=== PATIENT | male | born 1960 | race Caucasian/White ===

== ENCOUNTER 2016-12-26 14:34 | Inpatient (IN) | payer MEDICARE ==
[2016-12-26 15:14] VITALS: BMI 31.8
[2016-12-26] MEDS ORDERED: HYDROcodone/Acetaminophen 10/325 mg Tablet PO PRN (15:47)
[2016-12-26] MEDS: HYDROcodone/Acetaminophen 10/325 mg Tablet PO PRN ×2 (16:35→21:41)
[2016-12-26] MEDS ORDERED: Dextrose 50% Abboject 50 ML SYRINGE IVP PRN (20:05)
[2016-12-26] MEDS ORDERED: Dextrose 5% in Water 1,000 ML IV PRN (20:05)
[2016-12-26] MEDS: Pregabalin 100 MG CAP PO SCH (21:40)
[2016-12-26] MEDS: Lisinopril 5 MG TAB PO SCH (21:41)
[2016-12-26] MEDS: Zolpidem Tartrate 5 MG TAB PO PRN (21:41)
[2016-12-26] MEDS: Metoprolol Tartrate 25 MG TAB PO SCH (21:41)
[2016-12-26] MEDS: Atorvastatin Calcium 10 MG TAB PO SCH (21:41)
[2016-12-27 05:46] LABS: ALT (SGPT) 9 U/L (0-55); AST (SGOT) 17 U/L (5-34); Alkaline Phosphatase 106 U/L (40-150); Anion Gap 14 mmol/L (10-20); BUN (Urea Nitrogen) 25 mg/dL (8.4-25.7); Bilirubin, Total 0.6 mg/dL (0.2-1.2); Calc. Creatinine Clearance 100 mL/min (70-130); Carbon Dioxide 25 mmol/L (22-29); Chloride 103 mmol/L (98-107); Estimated GFR-MDRD 59; Globulin 2.9 g/dL (2.4-3.5); Protein, Total 5.8 g/dL (6.0-8.3)
[2016-12-27 06:18] LABS: Band 8 % (5-11); Hematocrit 35.4 % (42.0-52.0); Mean Platelet Volume 7.8 fL (7.4-10.4); Neutrophil 50 % (42-75); Red Blood Cell (RBC) Count 3.84 mill/uL (4.70-6.10); White Blood Cell (WBC) Count 9.9 thou/uL (4.8-10.8)
[2016-12-27] MEDS: HYDROcodone/Acetaminophen 10/325 mg Tablet PO PRN ×4 (06:25→21:17)
[2016-12-27] MEDS: Furosemide 20 MG TAB PO SCH (08:55)
[2016-12-27] MEDS: Pregabalin 100 MG CAP PO SCH ×3 (08:56→21:18)
[2016-12-27] MEDS: Metoprolol Tartrate 25 MG TAB PO SCH ×2 (08:58→21:18)
[2016-12-27] MEDS: Aspirin 325 MG TAB PO SCH (08:58)
[2016-12-27] MEDS: Levemir Flexpen 100 UNITS/ML PEN SC SCH (08:59)
[2016-12-27] MEDS: HumaLOG 300 UNITS/3 ML VIAL SC PRN (12:36)
--- NOTE | 2016-12-27 19:58 | HP ---
DATE OF ADMISSION: 12/26/2016 DATE OF EXAMINATION: 12/27/2016 CHIEF COMPLAINT: Status post left knee replacement for physical therapy. BRIEF HISTORY: This is a very pleasant 56-year-old male who was admitted to [facility] for left knee replacement. He underwent the procedure without any problems and he griffiths s been discharged here for therapy. He states that the pain is reasonably well controlled. He did not like the nerve block. He denies any fever or chills. He denies any numbness. PAST MEDICAL HISTORY: 1. Coronary artery disease. 2. Chronic obstructive pulmonary disease. He continues to smoke. 3. Diabetes mellitus type 2. 4. Hypertension. 5. Peripheral vascular disease. 6. Peripheral neuropathy most likely due to diabetes. 7. History of arrhythmia with bradycardia requiring pacemaker placement with episode of bacterial e ndocarditis, this requiring 6 weeks of antibiotics. PAST SURGICAL HISTORY: 1. Eleven back surgeries. 2. Six knee surgeries. 3. Bilateral wrist fusion. 4. Bilateral toe amputation. 5. Pacemaker placement and subsequent pacemaker removal. FAMILY HISTORY: Positive for lung cancer in his father. PSYCHOSOCIAL HISTORY: He is retired, persistent tobacco abuse. Denies any alcohol or IV drug abuse . CURRENT MEDICATIONS: He has been admitted here with the following medications: 1. Aspirin 325 mg b.i.d. 2. Lipitor 10 mg daily. 3. Lasix 20 mg daily. 4. [place] 5/325 q.6 h. p.r.n. 5. Levemir 25 units subcutaneous daily. 6. Lisinopril 5 mg at bedtime. 7. Lopressor 25 mg b.i.d. 8. Lyrica 100 mg t.i.d. 9. Metformin 1000 mg b.i.d. 10. Ambien 5 mg p.o. at bedtime p.r.n. ALLERGIES: ORANGES and DULOXETINE. REVIEW OF SYSTEMS: CARDIOVASCULAR: Denies any chest pain, shortness of breath, palpitations, PND, orthopnea, or pedal edema. RESPIRATORY: Denies any chronic cough, expectoration or pleuritic type chest pain. GASTROINTESTINAL: Denies any nausea, vomiting, diarrhea, constipation, hematemesis, melena, or heidi tochezia. GENITOURINARY: Denies any frequency, urgency, dysuria or hematuria. CENTRAL NERVOUS SYSTEM: Generalized weakness due to the knee surgery and peripheral neuropathy. HEENT: No difficulty with speech, vision, hearing or swallowing. PHYSICAL EXAMINATION: GENERAL: A pleasant 56-year-old male, sitting outside, smoking cigarettes. He is alert, awake, and oriented x3. HEENT: Normocephalic, atraumatic. Pupils equal and reactive to light and accommodation. VITAL SIGNS: He is afebrile. Heart rate is 71, respirations are 20, oxygen saturation is 95% on ro om air, and blood pressure 128/60. CARDIOVASCULAR: S1 and S2+. RESPIRATORY: Normal vesicular breath sounds. ABDOMEN: Soft, nontender, bowel sounds heard in all quadrants. EXTREMITIES: Evidence for degenerative joint disease in his right knee. Left knee shows an incisio n with dressing. Left knee does show some effusion. There is some slight erythema to the skin. Sl ight warm. It is nontender. No neurovascular compromise. LABORATORY VALUES: From this morning shows a white count of 9.9, H and H is 11.8 and 35.4. Debeaker ry shows a sodium of 138, potassium 4.4, BUN and creatinine 25 and 1.25. Blood sugars are 153, 131, 138, and 272. IMPRESSION: 1. Status post left total knee replacement. 2. Coronary artery disease. 3. Hypertension. 4. Dyslipidemia. 5. Peripheral vascular disease. 6. Persistent tobacco abuse. PLAN: 1. Continue current medications. 2. Pain control. 3. Incisional care. 4. Watch for signs and symptoms of infection. 5. We again reinforced the need to quit smoking. 6. DVT and stress ulcer prophylaxis. 7. Decubitus precautions. 8. Nutritional support and routine laboratory values.
[2016-12-27] MEDS: Lisinopril 5 MG TAB PO SCH (21:18)
[2016-12-27] MEDS: Atorvastatin Calcium 10 MG TAB PO SCH (21:19)
[2016-12-27] MEDS: Zolpidem Tartrate 5 MG TAB PO PRN (21:19)
[2016-12-28] MEDS: HYDROcodone/Acetaminophen 10/325 mg Tablet PO PRN ×3 (03:25→20:51)
[2016-12-28] MEDS: HumaLOG 300 UNITS/3 ML VIAL SC PRN ×2 (06:28→11:16)
[2016-12-28] MEDS: Levemir Flexpen 100 UNITS/ML PEN SC SCH (09:00)
[2016-12-28] MEDS: Pregabalin 100 MG CAP PO SCH ×3 (09:01→20:52)
[2016-12-28] MEDS: Aspirin 325 MG TAB PO SCH (09:02)
[2016-12-28] MEDS: Furosemide 20 MG TAB PO SCH (09:02)
[2016-12-28] MEDS: Metoprolol Tartrate 25 MG TAB PO SCH ×2 (09:02→20:52)
--- NOTE | 2016-12-28 14:14 | PRG ---
DATE OF SERVICE: 12/28/2016 SUBJECTIVE: Mr. Paige is sitting outside, he had to take his DMITRY hose off from his left leg. He s tated that was causing him more pain. He still has some swelling and some erythema. Denies any fev er or chills. Dressing is intact. OBJECTIVE: VITAL SIGNS: He is afebrile, heart rate is 70, respirations 20, oxygen saturation is 93%, blood pre ssure 143/76. CARDIOVASCULAR: S1 and S2 plus. RESPIRATORY: Normal vesicular breath sounds. ABDOMEN: Soft, nontender, bowel sounds heard in all quadrants. EXTREMITIES: Left knee incision with dressing. Some edema and erythema is present. I advised him to try to keep it elevated. He states that he is having pain, but it is controlled. IMPRESSION: 1. Left knee replacement. 2. Peripheral vascular disease. 3. Tobacco abuse. 4. Coronary artery disease. 5. Chronic obstructive pulmonary disease. 6. Diabetes mellitus type 2. 7. Hypertension. PLAN: 1. Continue 1800 calorie heart healthy diet. 2. Accu-Cheks with sliding scale coverage. 3. Pain control. 4. Physical therapy. 5. Watch for signs and symptoms of infection. 6. Again reinforced the need for him to quit smoking. 7. Dr. Nisha Brownlee back tonight.
[2016-12-28] MEDS: Zolpidem Tartrate 5 MG TAB PO PRN (20:52)
[2016-12-28] MEDS: Lisinopril 5 MG TAB PO SCH (20:52)
[2016-12-28] MEDS: Atorvastatin Calcium 10 MG TAB PO SCH (20:53)
[2016-12-29] MEDS: HYDROcodone/Acetaminophen 10/325 mg Tablet PO PRN ×5 (01:33→22:21)
[2016-12-29] MEDS: Metoprolol Tartrate 25 MG TAB PO SCH ×2 (09:08→20:36)
[2016-12-29] MEDS: Furosemide 20 MG TAB PO SCH (09:09)
[2016-12-29] MEDS: Aspirin 325 MG TAB PO SCH (09:09)
[2016-12-29] MEDS: Pregabalin 100 MG CAP PO SCH ×3 (09:09→20:33)
[2016-12-29] MEDS: Levemir Flexpen 100 UNITS/ML PEN SC SCH (09:13)
[2016-12-29] MEDS: HumaLOG 300 UNITS/3 ML VIAL SC PRN (12:12)
[2016-12-29] MEDS: Atorvastatin Calcium 10 MG TAB PO SCH (20:36)
[2016-12-29] MEDS: Lisinopril 5 MG TAB PO SCH (20:36)
[2016-12-29] MEDS: Zolpidem Tartrate 5 MG TAB PO PRN (20:36)
--- NOTE | 2016-12-29 22:39 | PRG ---
DATE OF ADMISSION: 12/26/2016 DATE OF SERVICE: 12/29/2016 SUBJECTIVE: Mr. Paige is a 56-year-old white male who had a total knee replacement on the left kne e. Postoperatively, he had some pain and lots of muscle spasm and he was transferred to [facility] for physical therapy and occupational therapy. The patient states he has complaint of increasing pain today. His left knee looks a little bit more red than it should be, although Dr. Fernandez describes the same thing yesterday. Mr. Paige said he d eferred it all. He has no complaints today. OBJECTIVE: VITAL SIGNS: Blood pressure is 128/60, pulse 72-82, respirations 20-22, O2 sat 96% to 98%, T-max 98 .2. GENERAL: This is a well-developed, well-nourished, slightly obese white male in no apparent distres s at this time. HEENT: Reveals normocephalic, nontraumatic cranium. Pupils are equally round and reactive. Extrao cular movements are intact. Nose and throat are slightly dry. NECK: Supple, without masses, nodes or bruits. LUNGS: Chest is clear to auscultation. No rales, rhonchi or wheezes are heard. CARDIOVASCULAR: Reveals a regular rate and rhythm without murmurs, gallops or rubs. ABDOMEN: Obese, soft, nontender, without organomegaly. Normal bowel sounds are noted. No rebound or guarding is noted. GENITOURINARY: Deferred. EXTREMITIES: Left knee reveals incision with dressing over it. The patient has some erythema mainl y on the medial side, some edema is noted. It is still elevated. He states he seems to be having m ore pain, but is not warm, it is just slightly red. NEUROLOGIC: Otherwise, he is oriented to person, place, and time. IMPRESSION: 1. Left knee total knee replacement. 2. Peripheral vascular disease. 3. Coronary artery disease. 4. Chronic obstructive pulmonary disease. 5. Diabetes, type 2. 6. Hypertension. 7. Tobacco abuse. PLAN: 1. Continue physical therapy and occupational therapy. 2. Continue to follow that wound closely to make sure it does not get infected. 3. Accu-Cheks a.c. and at bedtime. 4. Pain control. 5. Continue DVT and stress ulcer prophylaxis. 6. Continue decubitus precautions. 7. Continue vital signs closely for signs of infection. 8. Encourage the patient to absolutely completely stop smoking.
[2016-12-30] MEDS: HYDROcodone/Acetaminophen 10/325 mg Tablet PO PRN ×5 (02:39→20:13)
[2016-12-30 05:28] LABS: #Basophils 0.1 thou/uL (0.0-0.2); #Eosinphils 0.6 thou/uL (0.0-0.7); #Lymphocytes 2.7 thou/uL (1.20-3.40); #Neutrophils 6.2 thou/uL (1.40-6.50); %Basophils 1.2 % (0.0-1.0); %Eosinophils 5.7 % (0.0-10.0); %Lymphocytes 25.6 % (21.0-51.0); Hematocrit 34.7 % (42.0-52.0); Mean Platelet Volume 7.2 fL (7.4-10.4); White Blood Cell (WBC) Count 10.5 thou/uL (4.8-10.8)
[2016-12-30 05:42] LABS: ALT (SGPT) 18 U/L (0-55); AST (SGOT) 21 U/L (5-34); Alkaline Phosphatase 108 U/L (40-150); Anion Gap 14 mmol/L (10-20); BUN (Urea Nitrogen) 30 mg/dL (8.4-25.7); Bilirubin, Total 0.5 mg/dL (0.2-1.2); Calc. Creatinine Clearance 105 mL/min (70-130); Calcium 8.9 mg/dL (7.8-10.44); Carbon Dioxide 26 mmol/L (22-29); Chloride 103 mmol/L (98-107); Estimated GFR-MDRD 63
[2016-12-30] MEDS: Levemir Flexpen 100 UNITS/ML PEN SC SCH (08:31)
[2016-12-30] MEDS: Aspirin 325 MG TAB PO SCH (08:33)
[2016-12-30] MEDS: Metoprolol Tartrate 25 MG TAB PO SCH ×2 (08:33→20:15)
[2016-12-30] MEDS: Pregabalin 100 MG CAP PO SCH ×3 (08:33→20:14)
[2016-12-30] MEDS: Furosemide 20 MG TAB PO SCH (08:34)
--- NOTE | 2016-12-30 09:59 | PRG ---
DATE OF SERVICE: 12/30/2016 HISTORY OF PRESENT ILLNESS: Mr. Paige is a 56-year-old white male that had a total knee replacemen t done on the left knee. Postoperatively, had a quite a bit of pain and some swelling and muscle sp asms. He was transferred to [facility] for physical therapy and occupational therap y. The patient states he has some increased pain, but it seems to be better. His left knee is still so me swollen and slightly red. LABORATORY DATA: We did do lab work, which revealed white count of 10,500, hemoglobin 11.9, hematoc rit 34.7, platelet count 339,000. No significant shift is noted. Sodium 138, potassium 5.0, chlori de 103, carbon dioxide 26 with a BUN of 30, creatinine 1.19 and sugar this morning 124. Accu-Cheks yesterday revealed a fasting 144, before lunch 191, before supper 113, before bedtime 126, and fasti ng this morning 124. PHYSICAL EXAMINATION: GENERAL: He is a well-developed, well-nourished, slightly obese white male in no apparent distress at this time. HEENT: Reveals normocephalic, nontraumatic cranium. Pupils are equally round. Nose and throat are slightly dry. NECK: Supple, without masses, nodes or bruits. CHEST: Clear to auscultation. No rales, rhonchi, wheezes, or cough is heard. CARDIOVASCULAR: Heart reveals a regular rate and rhythm without murmurs, gallops or rubs. ABDOMEN: Obese, soft, nontender, without organomegaly. Normal bowel sounds are noted. No rebound or guarding is noted. GENITOURINARY: Deferred. EXTREMITIES: Left knee reveals still slightly red, may be a little bit less than it was yesterday, still somewhat swollen. It is not warm, it is not draining. NEUROLOGIC: He is oriented to person, place, and time. ASSESSMENT: 1. Total left knee replacement. 2. Peripheral vascular disease. 3. Coronary artery disease. 4. Chronic obstructive pulmonary disease, still smoking. 5. Diabetes type 2. 6. Hypertension. 7. Tobacco abuse. PLAN: 1. Continue physical therapy and occupational therapy. 2. Continue to follow the wound closely. Make sure, it does not get infected. 3. Accu-Cheks a.c. and at bedtime. 4. Pain control. 5. Deep venous thrombosis and stress ulcer prophylaxis. 6. Continue decubitus precautions. 7. Follow his vital signs closely for signs of infection and blood pressure. 8. Continue to encourage patient to absolutely stop smoking.
[2016-12-30] MEDS: HumaLOG 300 UNITS/3 ML VIAL SC PRN ×2 (11:12→20:15)
[2016-12-30] MEDS: Lisinopril 5 MG TAB PO SCH (20:14)
[2016-12-30] MEDS: Zolpidem Tartrate 5 MG TAB PO PRN (20:14)
[2016-12-30] MEDS: Atorvastatin Calcium 10 MG TAB PO SCH (20:15)
[2016-12-31] MEDS: HYDROcodone/Acetaminophen 10/325 mg Tablet PO PRN ×5 (02:46→20:32)
[2016-12-31] MEDS: HumaLOG 300 UNITS/3 ML VIAL SC PRN ×3 (05:11→16:50)
[2016-12-31] MEDS: Furosemide 20 MG TAB PO SCH (07:57)
[2016-12-31] MEDS: Aspirin 325 MG TAB PO SCH (07:57)
[2016-12-31] MEDS: Metoprolol Tartrate 25 MG TAB PO SCH ×2 (07:57→20:31)
[2016-12-31] MEDS: Pregabalin 100 MG CAP PO SCH ×3 (07:57→20:31)
[2016-12-31] MEDS: Levemir Flexpen 100 UNITS/ML PEN SC SCH (08:01)
--- NOTE | 2016-12-31 14:55 | PRG ---
DATE OF SERVICE: 12/31/2016 HISTORY OF PRESENT ILLNESS: Mr. Paige is a very pleasant 56-year-old white male had a total knee r eplacement done and postoperatively he had lots of pain, and lots of swelling. He lives alone and i s unable to care for himself, he was transferred to [facility] for physical therapy, occupati onal therapy to increase his strength and stamina. SUBJECTIVE: The patient has no complaints today except his leg is still swollen and has quite bit o f pain. OBJECTIVE: VITAL SIGNS: Today reveal blood pressure is elevated this morning at 170/72, pulse 69-75, respirati ons 18-20, O2 sat 95-98%. The patient is still smoking. T-max is 96.9. GENERAL: This is a well-developed, well-nourished, obese white male in no apparent distress at this time. HEENT: Reveals normocephalic, nontraumatic cranium. Pupils are equally round and reactive. Extrao cular movements intact. Nose and throat slightly dry. NECK: Supple, without masses, nodes or bruits. CHEST: Clear to auscultation. No rales, rhonchi or wheezes are heard. CARDIOVASCULAR: Reveals a regular rate and rhythm without murmurs, gallops or rubs. ABDOMEN: Obese, soft, nontender, without organomegaly, normal bowel sounds are noted. No rebound o r guarding is noted. : Deferred. EXTREMITIES: Reveal no clubbing, cyanosis or edema. The left knee reveals still slightly red, stil l swollen and puffy, but not warm, not draining. NEUROLOGIC: The patient has no focal deficits. Alert and oriented to person, place, and time. ASSESSMENT: 1. Total left knee replacement. 2. Peripheral vascular disease. 3. Coronary artery disease. 4. Chronic obstructive pulmonary disease, still smoking. 5. Diabetes type 2. 6. Hypertension. 7. Tobacco abuse. PLAN: 1. Continue physical therapy and occupational. 2. Continue to follow him closely and make sure he does not get infected. 3. Accu-Cheks a.c. and at bedtime. 4. Pain control. 5. DVT and stress ulcer prophylaxis. 6. Continue decubitus precautions. 7. Follow vital signs closely for signs of infection and hypertension. 8. Encouraged the patient to absolutely stop smoking.
[2016-12-31] MEDS: Lisinopril 5 MG TAB PO SCH (20:31)
[2016-12-31] MEDS: Atorvastatin Calcium 10 MG TAB PO SCH (20:31)
[2016-12-31] MEDS: Zolpidem Tartrate 5 MG TAB PO PRN (20:32)
[2017-01-01] MEDS: HYDROcodone/Acetaminophen 10/325 mg Tablet PO PRN ×5 (02:16→20:14)
[2017-01-01] MEDS: HumaLOG 300 UNITS/3 ML VIAL SC PRN ×3 (06:05→16:59)
[2017-01-01] MEDS: Furosemide 20 MG TAB PO SCH (08:52)
[2017-01-01] MEDS: Metoprolol Tartrate 25 MG TAB PO SCH ×2 (08:52→20:13)
[2017-01-01] MEDS: Aspirin 325 MG TAB PO SCH (08:52)
[2017-01-01] MEDS: Levemir Flexpen 100 UNITS/ML PEN SC SCH (08:53)
[2017-01-01] MEDS: Pregabalin 100 MG CAP PO SCH ×3 (08:53→20:13)
[2017-01-01 09:16] LABS: #Basophils 0.2 thou/uL (0.0-0.2); #Eosinphils 0.5 thou/uL (0.0-0.7); #Lymphocytes 2.8 thou/uL (1.20-3.40); #Monocytes 0.6 thou/uL (0.11-0.59); #Neutrophils 8.1 thou/uL (1.40-6.50); %Basophils 1.4 % (0.0-1.0); %Eosinophils 3.8 % (0.0-10.0); %Lymphocytes 22.8 % (21.0-51.0); %Monocytes 5.2 % (0.0-10.0); Hematocrit 37.2 % (42.0-52.0); Red Blood Cell (RBC) Count 3.98 mill/uL (4.70-6.10); White Blood Cell (WBC) Count 12.1 thou/uL (4.8-10.8)
[2017-01-01] MEDS: Atorvastatin Calcium 10 MG TAB PO SCH (20:13)
[2017-01-01] MEDS: Lisinopril 5 MG TAB PO SCH (20:13)
[2017-01-01] MEDS: Sulfameth/Trimethoprim DS 800-160mg TAB PO SCH (20:14)
[2017-01-01] MEDS: Zolpidem Tartrate 5 MG TAB PO PRN (21:00)
--- NOTE | 2017-01-01 22:54 | PRG ---
DATE OF ADMISSION: 12/26/2016 DATE OF PROGRESS NOTE: 01/01/2017 SUBJECTIVE: Mr. Paige is a very pleasant 56-year-old white male with a total knee replacement done . Postoperatively, he had lots of pain and swelling. He lives alone and therefore was transferred to [facility] for physical therapy/occupational therapy to increase his strength and stamina. His leg is a little bit more red and swollen today. We did repeat white count that was gone from 10 ,000 to 12,000, so there is nothing draining, but we will presumptively start him on some Bactrim-DS one pill twice a day to see if that helps with the swelling and inflammation before gets an abscess . He has no fluctuance to some swelling and some redness. Subjectively, he has no other complaints. OBJECTIVE: VITAL SIGNS: Blood pressure this morning 135/65, pulse 65-81, respirations 18, O2 sat 94-98% on steffany m air, T-max 97.4. GENERAL: This is a well-developed, slightly obese white male, in no apparent distress at this time. HEENT: Reveals normocephalic, nontraumatic cranium. Pupils are equally round and reactive. Extrao cular movements intact. Nose and throat are dry, but clear. NECK: Supple, without masses, nodes or bruits. CHEST: Clear to auscultation. No rales, rhonchi, wheezes or cough is heard. CARDIOVASCULAR: Regular rate and rhythm without murmurs, gallops or rubs. ABDOMEN: Obese, soft, nontender, without organomegaly. Normal bowel sounds are noted. No rebound or guarding is noted. : Deferred. EXTREMITIES: Reveal no clubbing, cyanosis or edema. Left knee is still slightly red, still puffy, a little warmer than it was yesterday. No drainage is noted. NEUROLOGIC: Patient has no focal deficits. He is oriented to person, place, and time. ASSESSMENT: 1. Recent total left knee replacement, somewhat red and inflamed. 2. Coronary artery disease. 3. Chronic obstructive pulmonary disease, still smoking. 4. Diabetes type 2. 5. Hypertension. 6. Tobacco abuse. PLAN: 1. Start Bactrim-DS one p.o. b.i.d. for 10 days. 2. Continue physical therapy and occupational therapy. 3. Continue to follow closely, actually it does not get infected. 4. Continue Accu-Cheks a.c. and at bedtime. 5. Pain control. 6. DVT and stress ulcer prophylaxis. 7. Continue decubitus precautions. 8. Follow vital signs closely for signs of infection. 9. Encouraged patient to stop smoking.
[2017-01-02] MEDS: HYDROcodone/Acetaminophen 10/325 mg Tablet PO PRN ×6 (00:39→22:20)
[2017-01-02] MEDS: HumaLOG 300 UNITS/3 ML VIAL SC PRN ×3 (05:25→22:17)
[2017-01-02] MEDS: Aspirin 325 MG TAB PO SCH (08:19)
[2017-01-02] MEDS: Metoprolol Tartrate 25 MG TAB PO SCH ×2 (08:19→22:20)
[2017-01-02] MEDS: Furosemide 20 MG TAB PO SCH (08:19)
[2017-01-02] MEDS: Levemir Flexpen 100 UNITS/ML PEN SC SCH (08:19)
[2017-01-02] MEDS: Sulfameth/Trimethoprim DS 800-160mg TAB PO SCH ×2 (08:20→22:19)
[2017-01-02] MEDS: Pregabalin 100 MG CAP PO SCH ×3 (08:20→22:19)
--- NOTE | 2017-01-02 19:41 | PRG ---
DATE OF SERVICE: 01/02/2017 SUBJECTIVE: Mr. Paige is a 56-year-old white male who had a total knee replaced on the left side. Postoperatively, he had lots of pain and lots of muscle spasm. He is transferred to [facility] for physical therapy and occupational therapy. The patient states that he feels a little better today; it is not as painful, states it is less swol imani and less red. OBJECTIVE: VITAL SIGNS: Today, reveal blood pressure 130/78, pulse 71-81, respirations 18, O2 sat 95% to 97% a nd T-max is 97.4. GENERAL: This is a well-developed, well-nourished, very pleasant white male, in no apparent distres s. HEENT: At this time, reveals normocephalic and nontraumatic cranium. Pupils are equally round and reactive to light and accommodation. Extraocular movements are intact. Nose and throat are slightl y dry. NECK: Supple, without masses, nodes or bruits. LUNGS: Chest clear to auscultation. No rales, no rhonchi, no wheezes. No cough is heard. The pat ient still smokes a couple of cigars each day. HEART: Reveals a regular rate and rhythm without murmurs, gallops or rubs. ABDOMEN: Obese, soft and nontender, without organomegaly. Normal bowel sounds are noted. No rebou nd or guarding is noted. GENITOURINARY: Deferred. EXTREMITIES: Reveal no clubbing, cyanosis or edema. Left knee is still slightly swollen and slight ly red, but much better than yesterday. We did start him on some Bactrim-DS twice a day for 14 days . NEUROLOGIC: The patient has no focal deficits. He is oriented to person, place, and time. LABORATORY DATA: Laboratories will be done tomorrow. IMPRESSION: 1. Recent total left knee replacement somewhat red and inflamed. 2. Coronary artery disease. 3. Chronic obstructive pulmonary disease, still smoking. 4. Diabetes type 2. 5. Hypertension. 6. Tobacco abuse. PLAN: 1. Bactrim DS 1 p.o. b.i.d. for 10 days. 2. Continue physical therapy and occupational therapy. 3. Continue to follow that left knee closely to make sure it does not get infected. 4. Continue Accu-Cheks a.c. and at bedtime. We will continue pain control and pain management. 5. Continue deep venous thrombosis and stress ulcer prophylaxis. 6. Continue decubitus precautions. 7. Follow vital signs closely. 8. Encouraged the patient stop smoking.
[2017-01-02] MEDS: Lisinopril 5 MG TAB PO SCH (22:19)
[2017-01-02] MEDS: Atorvastatin Calcium 10 MG TAB PO SCH (22:19)
[2017-01-02] MEDS: Zolpidem Tartrate 5 MG TAB PO PRN (22:20)
[2017-01-03] MEDS: HYDROcodone/Acetaminophen 10/325 mg Tablet PO PRN ×5 (03:43→21:36)
[2017-01-03 05:41] LABS: #Basophils 0.1 thou/uL (0.0-0.2); #Eosinphils 0.5 thou/uL (0.0-0.7); #Lymphocytes 2.4 thou/uL (1.20-3.40); #Monocytes 0.7 thou/uL (0.11-0.59); #Neutrophils 6.9 thou/uL (1.40-6.50); %Basophils 1.3 % (0.0-1.0); %Eosinophils 4.5 % (0.0-10.0); %Lymphocytes 22.8 % (21.0-51.0); %Monocytes 6.6 % (0.0-10.0); Hematocrit 34.7 % (42.0-52.0); Mean Platelet Volume 6.9 fL (7.4-10.4); Red Blood Cell (RBC) Count 3.74 mill/uL (4.70-6.10); White Blood Cell (WBC) Count 10.7 thou/uL (4.8-10.8)
[2017-01-03 05:53] LABS: Anion Gap 15 mmol/L (10-20); BUN (Urea Nitrogen) 32 mg/dL (8.4-25.7); Calc. Creatinine Clearance 82 mL/min (70-130); Calcium 9.2 mg/dL (7.8-10.44); Carbon Dioxide 26 mmol/L (22-29); Chloride 100 mmol/L (98-107); Estimated GFR-MDRD 48
[2017-01-03] MEDS: HumaLOG 300 UNITS/3 ML VIAL SC PRN ×3 (06:04→21:40)
[2017-01-03] MEDS: Pregabalin 100 MG CAP PO SCH ×3 (08:41→21:35)
[2017-01-03] MEDS: Aspirin 325 MG TAB PO SCH (08:44)
[2017-01-03] MEDS: Furosemide 20 MG TAB PO SCH (08:44)
[2017-01-03] MEDS: Sulfameth/Trimethoprim DS 800-160mg TAB PO SCH ×2 (08:44→21:35)
[2017-01-03] MEDS: Levemir Flexpen 100 UNITS/ML PEN SC SCH (08:44)
[2017-01-03] MEDS: Metoprolol Tartrate 25 MG TAB PO SCH ×2 (09:05→21:35)
--- NOTE | 2017-01-03 11:07 | PRG ---
DATE OF SERVICE: 01/03/2017 HISTORY OF PRESENT ILLNESS: Mr. Paige is a 56-year-old white male with total knee replaced on the left side. Postoperatively, he had lots of pain and lots of muscle spasms, transferred to [facility] for physical therapy and occupational therapy. States he feels very well today. He slept very well last night and is eating well. PHYSICAL EXAMINATION: VITAL SIGNS: Reveals blood pressure elevated at 174/74, pulse 71-80, respirations 18, O2 sat 95-97% . T-max is 97.5. GENERAL: This is a well-developed, well-nourished, slightly obese white male in no apparent distres s at this time. HEENT: Reveals normocephalic, nontraumatic cranium. Pupils are equally round and reactive. Extrao cular movements intact. Nose and throat slightly dry. NECK: Supple, without masses, nodes or bruits. LUNGS: Chest is clear to auscultation. CARDIOVASCULAR: Reveals a regular rate and rhythm without murmurs, gallops or rubs. ABDOMEN: Obese, soft, nontender, without organomegaly. Normal bowel sounds are noted. No rebound or guarding is noted. : Deferred. EXTREMITIES: Reveal no clubbing, cyanosis or edema, left knee is still slightly swollen and less re d and doing better. LABORATORY DATA: White count was normal. Laboratories done revealed a white count 10,700 with hemo globin 11.4, hematocrit 34.5. CRP elevated at 6.25. His sed rate is 89. IMPRESSION: 1. Recent total left knee replacement somewhat red and inflamed, on antibiotics. 2. Coronary artery disease. 3. Chronic obstructive pulmonary disease, still smoking. 4. Diabetic type 2. 5. Hypertension. 6. Tobacco abuse. PLAN: 1. Continue Bactrim-DS 1 p.o. b.i.d. for 10 days. 2. Continue physical therapy and occupational therapy. 3. Continue to follow left knee closely to make sure it does not get infected. 4. Continue Accu-Cheks a.c. and at bedtime. We will continue to follow. 5. Continued pain control and pain management. 6. Continue DVT and stress ulcer prophylaxis. 7. Continue to decubitus precaution. 8. Continue to follow her vital signs closely. 9. Encouraged of hygiene and to stop smoking.
[2017-01-03] MEDS: Atorvastatin Calcium 10 MG TAB PO SCH (21:35)
[2017-01-03] MEDS: Zolpidem Tartrate 5 MG TAB PO PRN (21:36)
[2017-01-03] MEDS: Lisinopril 5 MG TAB PO SCH (21:37)
[2017-01-04] MEDS: HYDROcodone/Acetaminophen 10/325 mg Tablet PO PRN ×3 (01:51→10:57)
[2017-01-04] MEDS: HumaLOG 300 UNITS/3 ML VIAL SC PRN ×2 (05:26→12:25)
[2017-01-04] MEDS ORDERED: Milk Of Magnesia 30 ML UDCUP PO PRN (06:21)
--- NOTE | 2017-01-04 07:56 | PRG ---
DATE OF SERVICE: 01/04/2017. HISTORY OF PRESENT ILLNESS: Mr. Paige is a very pleasant 56-year-old white male with a total knee replacement, left side. Postoperatively, he has lots of pain, lots of muscle spasms, transferred to [facility] for physical therapy and occupational therapy. He has been in a signifi cant risk always for cellulitis, every time he gets some type of operation he gets an osteomyelitis or cellulitis. He is watching very closely. He has no complaints today except feels constipated ye sterday, so we have started MiraLax daily. OBJECTIVE: VITAL SIGNS: Blood pressure this morning 143/69, pulse 69-80, respirations 18-20, O2 sa turations 97-98%, the patient still smokes. Temperature max is 96.6. LABORATORY DATA: Labs were all done yesterday which have no other significance concerns. Sugars griffiths ve been ranging from 116-204 mainly in the 150s to 160s. C-reactive protein yesterday was 6.28. Se d rate was 89. PHYSICAL EXAMINATION: GENERAL: This is a well-developed, well-nourished, very pleasant, slightly obese white male, in no apparent distress at this time. HEENT: Reveals normocephalic, nontraumatic cranium. Pupils are equally round and reactive. Extrao cular movements intact. Nose and throat slightly dry. NECK: Supple, without masses, nodes or bruits. CHEST: Clear to auscultation. No rales, rhonchi or wheezes are heard. CARDIOVASCULAR: Reveals a regular rate and rhythm without murmurs, gallops or rubs. ABDOMEN: Obese, soft, nontender, without organomegaly. Normal bowel sounds are noted. No rebound or guarding is noted. GENITOURINARY: Deferred. EXTREMITIES: Reveal no clubbing, cyanosis or edema. Left knee is still slightly swollen, but less so today and seems to be less red. IMPRESSION: 1. Total left knee replacement, somewhat red and inflamed, presently on Bactrim. 2. Coronary artery disease. 3. Chronic obstructive pulmonary disease, still smoking. 4. Diabetes type 2. 5. Hypertension. 6. Tobacco abuse. PLAN: 1. Continue Bactrim DS one p.o. b.i.d. for 10 days. 2. Continue physical therapy and occupational therapy. 3. Continue to follow up left knee closely to make sure that does not get infected. 4. Continue the Accu-Cheks a.c. and at bedtime. 5. Continue to pain control. 6. Continue to control of constipation with MiraLax daily. 7. Continue deep venous thrombosis and stress ulcer prophylaxes. 8. Continue decubitus precautions. 9. Encourage the patient to stop smoking.
[2017-01-04] MEDS: Aspirin 325 MG TAB PO SCH (09:00)
[2017-01-04] MEDS: Furosemide 20 MG TAB PO SCH (09:00)
[2017-01-04] MEDS: Levemir Flexpen 100 UNITS/ML PEN SC SCH (09:00)
[2017-01-04] MEDS: Polyethylene Glycol 3350 17 GM Packet PO SCH (09:01)
[2017-01-04] MEDS: Pregabalin 100 MG CAP PO SCH (09:01)
[2017-01-04] MEDS: Metoprolol Tartrate 25 MG TAB PO SCH (09:01)
[2017-01-04] MEDS: Sulfameth/Trimethoprim DS 800-160mg TAB PO SCH (09:02)
[2017-01-05 01:32] LABS: Anion Gap 20 mmol/L (10-20); BUN (Urea Nitrogen) 43 mg/dL (8.4-25.7); Calc. Creatinine Clearance 66 mL/min (70-130); Calcium 9.8 mg/dL (7.8-10.44); Carbon Dioxide 24 mmol/L (22-29); Chloride 101 mmol/L (98-107); Estimated GFR-MDRD 37
[2017-01-05 02:01] LABS: Hematocrit 36.7 % (42.0-52.0); Red Blood Cell (RBC) Count 3.95 mill/uL (4.70-6.10); White Blood Cell (WBC) Count 13.7 thou/uL (4.8-10.8)
[2017-01-05 02:02] LABS: #Eosinphils 0.4 thou/uL (0.0-0.7); #Monocytes 1.2 thou/uL (0.11-0.59); %Basophils 0.9 % (0.0-1.0); %Eosinophils 2.6 % (0.0-10.0); %Lymphocytes 22.1 % (21.0-51.0); Mean Platelet Volume 7.1 fL (7.4-10.4)
[2017-01-05 02:03] LABS: #Basophils 0.1 thou/uL (0.0-0.2)
[2017-01-05] MEDS: HYDROcodone/Acetaminophen 10/325 mg Tablet PO PRN ×5 (04:04→21:32)
[2017-01-05] MEDS: Polyethylene Glycol 3350 17 GM Packet PO SCH (08:55)
[2017-01-05] MEDS: Metoprolol Tartrate 25 MG TAB PO SCH ×2 (08:56→20:46)
[2017-01-05] MEDS: Aspirin 325 MG TAB PO SCH (08:56)
[2017-01-05] MEDS: Pregabalin 100 MG CAP PO SCH ×4 (08:58→20:46)
[2017-01-05] MEDS: Furosemide 20 MG TAB PO SCH (08:58)
[2017-01-05] MEDS: Sulfameth/Trimethoprim DS 800-160mg TAB PO SCH ×2 (08:58→20:47)
[2017-01-05] MEDS: Levemir Flexpen 100 UNITS/ML PEN SC SCH (09:03)
--- NOTE | 2017-01-05 10:37 | PRG ---
DATE OF SERVICE: 01/05/2017 HISTORY OF PRESENT ILLNESS: The patient is a 56-year-old white male that had a total knee replaceme nt on the left side. Postoperatively, he had lots of pain, lots of muscle spasms. He was transfer red to [facility] for physical therapy and occupational therapy. He has always had significant risk for cellulitis and his incision turned a little red, no drainage, but we placed him on Bactrim-DS. VITAL SIGNS: Vital signs this morning reveals blood pressure is 143/72, pulse 64-72, respirations 1 8-20, O2 sat 96-97% on room air, temperature max is 97.8. PHYSICAL EXAMINATION: GENERAL: This is a well-developed, well-nourished, very pleasant white male in no apparent distress at this time. HEENT: Reveals normocephalic, nontraumatic cranium. Pupils equal, round, and reactive. Extraocula r movements intact. Nose and throat slightly dry. NECK: Supple. CHEST: Clear to auscultation. No rales, rhonchi or wheezes, or cough is heard. CARDIOVASCULAR: Reveals a regular rate and rhythm without murmurs, gallops or rubs. ABDOMEN: Obese, soft, nontender, without organomegaly. Normal bowel sounds are noted. No rebound or guarding is noted. : Deferred. EXTREMITIES: Reveal no clubbing, cyanosis or edema. Left knee is less swollen, a little less red t bill. The patient felt lousy yesterday. He did have a blood count which revealed his white count was 13,0 00, but no source for infection. IMPRESSION: 1. Total left knee replacement, somewhat red and inflamed presently on Bactrim-DS twice daily. 2. Coronary artery disease. 3. Chronic obstructive pulmonary disease, smoking a pack a day. 4. Diabetes type 2. 5. Hypertension. 6. Tobacco abuse. PLAN: 1. Continue Bactrim-DS 1 p.o. b.i.d. for 10-14 days. Continue physical therapy and occupational th erapy. 2. Close follow up on that left knee to make sure it does not get infected. 3. Accu-Cheks a.c. and at bedtime. 4. Continue pain control. 5. Continue constipation prophylaxis with MiraLax. 6. Continue DVT and stress ulcer prophylaxis. 7. Continue decubitus precautions. 8. Encourage the patient to stop smoking.
[2017-01-05] MEDS: HumaLOG 300 UNITS/3 ML VIAL SC PRN (12:05)
[2017-01-05] MEDS: Lisinopril 5 MG TAB PO SCH (20:46)
[2017-01-05] MEDS: Atorvastatin Calcium 10 MG TAB PO SCH (20:46)
[2017-01-05] MEDS: Zolpidem Tartrate 5 MG TAB PO PRN (21:32)
[2017-01-06] MEDS: HYDROcodone/Acetaminophen 10/325 mg Tablet PO PRN ×5 (03:07→21:31)
[2017-01-06] MEDS: Levemir Flexpen 100 UNITS/ML PEN SC SCH (07:51)
[2017-01-06] MEDS: Metoprolol Tartrate 25 MG TAB PO SCH ×3 (07:52→21:31)
[2017-01-06] MEDS: Polyethylene Glycol 3350 17 GM Packet PO SCH (07:52)
[2017-01-06] MEDS: Aspirin 325 MG TAB PO SCH (07:53)
[2017-01-06] MEDS: Sulfameth/Trimethoprim DS 800-160mg TAB PO SCH ×2 (07:53→21:30)
[2017-01-06] MEDS: Furosemide 20 MG TAB PO SCH (07:53)
[2017-01-06] MEDS: Pregabalin 100 MG CAP PO SCH ×3 (07:54→21:30)
--- NOTE | 2017-01-06 09:56 | PRG ---
DATE OF SERVICE: 01/06/2017 HISTORY OF PRESENT ILLNESS: Mr. Paige is a 56-year-old white male with a total left knee replaceme nt. He was transferred here for physical therapy and occupational therapy. He has had some redness in his left leg. He has had multiple problems in the past with an infection, so we started him pro phylactically on some Bactrim-DS. He has no complaints except this morning he said he twisted his leg and it hurt quite a bit this mor jez. VITAL SIGNS: Blood pressure 121/58, pulse 66-72, respirations 16-18, O2 sat 97-98%, T-max 97.9. PHYSICAL EXAMINATION: GENERAL: This is a well-developed, well-nourished, very pleasant white male in no apparent distress at this time. HEENT: Reveals normocephalic, nontraumatic cranium. Pupils equal, round, and reactive. Extraocula r movements intact. Nose and throat are slightly dry. NECK: Supple, without masses, nodes or bruits. CHEST: Clear to auscultation. No rales, rhonchi or wheezes are heard. CARDIOVASCULAR: Reveals a regular rate and rhythm without murmurs, gallops or rubs. ABDOMEN: Obese, soft, nontender, without organomegaly. Normal bowel sounds are noted. No rebound or guarding is noted. : Deferred. EXTREMITIES: Reveal no clubbing, cyanosis or edema. Left knee is less swollen and less red, more t ana since he twisted it a little bit today. The patient states he feels well. He is not constipated. He is eating well. IMPRESSION: 1. Total left knee replacement, less swelling, presently on Bactrim-DS. 2. Coronary artery disease. 3. Chronic obstructive pulmonary disease, still smoking a pack a day. 4. Diabetes type 2. 5. Hypertension. 6. Tobacco abuse. PLAN: 1. Continue Bactrim-DS for 10-14 days. 2. Continue physical therapy and occupational therapy. 3. Continued DVT and stress ulcer prophylaxis. 4. Continue Accu-Cheks a.c. and at bedtime. 5. Continue pain control. 6. Continue constipation prophylaxis with MiraLax. 7. Continued decubitus precautions. 8. Encourage the patient to stop smoking. 9. Follow that leg closely to make sure it does not get infected.
[2017-01-06] MEDS ORDERED: Bisacodyl 10 MG SUPP PR PRN (15:03)
[2017-01-06] MEDS: Lisinopril 5 MG TAB PO SCH (21:29)
[2017-01-06] MEDS: Atorvastatin Calcium 10 MG TAB PO SCH (21:29)
[2017-01-06] MEDS: Zolpidem Tartrate 5 MG TAB PO PRN (21:31)
[2017-01-07] MEDS: HYDROcodone/Acetaminophen 10/325 mg Tablet PO PRN ×5 (03:04→21:28)
[2017-01-07] MEDS: HumaLOG 300 UNITS/3 ML VIAL SC PRN ×2 (05:28→11:34)
[2017-01-07] MEDS: Pregabalin 100 MG CAP PO SCH ×4 (08:22→21:59)
[2017-01-07] MEDS: Furosemide 20 MG TAB PO SCH (08:23)
[2017-01-07] MEDS: Sulfameth/Trimethoprim DS 800-160mg TAB PO SCH ×3 (08:23→22:00)
[2017-01-07] MEDS: Levemir Flexpen 100 UNITS/ML PEN SC SCH (08:23)
[2017-01-07] MEDS: Polyethylene Glycol 3350 17 GM Packet PO SCH (08:24)
[2017-01-07] MEDS: Metoprolol Tartrate 25 MG TAB PO SCH ×2 (08:24→21:27)
[2017-01-07] MEDS: Aspirin 325 MG TAB PO SCH (08:26)
--- NOTE | 2017-01-07 13:38 | RAD ---
TWO VIEWS OF THE LEFT KNEE: Date: 01-07-17 Comparison: 12-23-16 History: Knee replacement, pain. FINDINGS: Post-operative clips are noted within the soft tissues medial to the left knee. There is a total kn ee arthroplasty on the left, demonstrating no evidence for hardware failure. Small volume knee join t effusion suspected, difficult to assess secondary to post-operative state. The patella demonstrat es posterior post-operative change. No displaced fracture or evidence of dislocation seen. IMPRESSION: Post-operative changes. No acute fracture or evidence of dislocation seen. POS: [facility]
--- NOTE | 2017-01-07 20:38 | PRG ---
DATE OF SERVICE: 01/07/2017 SUBJECTIVE: Mr. Paige is a very pleasant 56-year-old white male with a total left knee replacement . Transferred here for physical therapy and occupational therapy. He has some redness in his left leg, he has had multiple problems in the past for infectious, we will start him prophylactically on some Bactrim-DS is actually seemed to be doing well. The patient was up and moving around last nigh t when he again twisted his leg. He states it hurt really bad, he is unable to do anything with it today. He requests an x-ray and certainly on inspection, he has no swelling, no redness, but it is exquisitely tender, we will get an x-ray this morning. OBJECTIVE: VITAL SIGNS: Today blood pressure is 118/57, pulse 60-66, respirations 18-20, and O2 saturation 94% to 98% on room air. Sugars are basically 151 or less. PHYSICAL EXAMINATION: GENERAL: This is a well-developed, well-nourished, somewhat obese white male, in no apparent distre ss at this time. HEENT: Reveals normocephalic, nontraumatic cranium. Pupils are equally round and reactive. Extrao cular movements intact. Nose and throat slightly dry. NECK: Supple, without masses, nodes or bruits. CHEST: Clear to auscultation. No rales, rhonchi or wheezes are heard. CARDIOVASCULAR: Reveals a regular rate and rhythm without murmurs, gallops or rubs. ABDOMEN: Obese, soft, nontender, without organomegaly. Normal bowel sounds are noted. No rebound or guarding is noted. : Deferred. EXTREMITIES: Reveal no clubbing, cyanosis or edema. Left knee is still less swollen, but more tend er today. We will get an x-ray this morning. IMPRESSION: 1. Total left knee replacement with less swelling, presently on Bactrim-DS. 2. Coronary artery disease. 3. Chronic obstructive pulmonary disease, still smoking a pack a day. 4. Diabetes type 2. 5. Hypertension. 6. Tobacco abuse. PLAN: 1. Continue Bactrim-DS 14 days. 2. Continue physical therapy and occupational therapy. 3. Continue DVT and stress ulcer prophylaxis. 4. Continue Accu-Cheks a.c. and at bedtime. 5. Continue pain control. 6. Continue prophylaxis with MiraLax for constipation. 7. Continue decubitus precautions. 8. Encourage the patient to stop smoking.
[2017-01-07] MEDS: Atorvastatin Calcium 10 MG TAB PO SCH ×2 (21:27→21:58)
[2017-01-07] MEDS: Zolpidem Tartrate 5 MG TAB PO PRN (21:27)
[2017-01-07] MEDS: Lisinopril 5 MG TAB PO SCH ×2 (21:27→21:59)
[2017-01-08] MEDS: HYDROcodone/Acetaminophen 10/325 mg Tablet PO PRN ×4 (02:25→20:52)
[2017-01-08] MEDS: Pregabalin 100 MG CAP PO SCH ×3 (08:24→20:50)
[2017-01-08] MEDS: Aspirin 325 MG TAB PO SCH (08:24)
[2017-01-08] MEDS: Levemir Flexpen 100 UNITS/ML PEN SC SCH (08:27)
[2017-01-08] MEDS: Metoprolol Tartrate 25 MG TAB PO SCH ×2 (08:27→20:51)
[2017-01-08] MEDS: Polyethylene Glycol 3350 17 GM Packet PO SCH (08:27)
[2017-01-08] MEDS: Furosemide 20 MG TAB PO SCH (08:30)
[2017-01-08] MEDS: Sulfameth/Trimethoprim DS 800-160mg TAB PO SCH ×2 (08:30→20:50)
--- NOTE | 2017-01-08 15:42 | PRG ---
DATE OF SERVICE: 01/08/2017 SUBJECTIVE: Mr. Paige is a 56-year-old white male with a total left knee done in [facility]. He said he did very well, but had quite a bit of pain afterwards and swelli ng. He was transferred to [facility] for physical therapy and occupational therapy. While in the hospital, he became a little bit red and he also had a boil on his left elbow that we s tarted him on Bactrim DS, so he would not get an infection in his prosthesis. OBJECTIVE: VITAL SIGNS: Today, revealed a blood pressure this morning, it was 138/62, pulse 70-74, respiration s 18-20, O2 sat 98% on room air and temperature 98.1. GENERAL: This is a well-developed, well-nourished, somewhat obese white male in no apparent distres s at this time. HEENT: Reveals normocephalic and nontraumatic cranium. Pupils are equal, round and reactive. Extr aocular movements are intact. Nose and throat are slightly dry. NECK: Supple, without mass, nodes or bruits. LUNGS: Chest is clear to auscultation. No rales, no rhonchi, no wheezes. No cough is heard. CARDIOVASCULAR: Reveals a regular rate and rhythm without murmurs, gallops or rubs. ABDOMEN: Obese, soft and nontender, without organomegaly. Normal bowel sounds are noted. No rebou nd or guarding is noted. GENITOURINARY: Deferred. EXTREMITIES: Reveal no clubbing, cyanosis or edema. The left knee is still slightly swollen and he hurt it really bad when he twisted enough before we did do an x-ray yesterday, which was unremarkab le. It does not look it is swollen, is not as red. IMPRESSION: 1. Total left knee replacement with less swelling, presently on Bactrim DS for the left boil on the left elbow. 2. Coronary artery disease. 3. Chronic obstructive pulmonary disease, still smoking a pack a day. 4. Diabetes type 2. 5. Hypertension. 6. Tobacco abuse. PLAN: 1. Continue Bactrim DS for 14 days. 2. Continue physical therapy and occupational therapy. 3. Continue deep venous thrombosis and stress ulcer prophylaxis. 4. Continue Accu-Cheks a.c. and at bedtime. 5. Continue pain control. 6. Continue prophylaxis with MiraLax for constipation. 7. Continue decubitus precautions. 8. Continued to encourage the patient to stop smoking.
[2017-01-08] MEDS: Zolpidem Tartrate 5 MG TAB PO PRN (20:51)
[2017-01-08] MEDS: Lisinopril 5 MG TAB PO SCH (20:51)
[2017-01-08] MEDS: Atorvastatin Calcium 10 MG TAB PO SCH (20:53)
[2017-01-09] MEDS: HYDROcodone/Acetaminophen 10/325 mg Tablet PO PRN ×5 (03:19→21:42)
[2017-01-09] MEDS: Metoprolol Tartrate 25 MG TAB PO SCH ×2 (07:49→21:08)
[2017-01-09] MEDS: Pregabalin 100 MG CAP PO SCH ×3 (07:50→21:09)
[2017-01-09] MEDS: Aspirin 325 MG TAB PO SCH (07:50)
[2017-01-09] MEDS: Sulfameth/Trimethoprim DS 800-160mg TAB PO SCH ×2 (07:51→21:08)
[2017-01-09] MEDS: Furosemide 20 MG TAB PO SCH (07:51)
[2017-01-09] MEDS: Polyethylene Glycol 3350 17 GM Packet PO SCH (07:51)
[2017-01-09] MEDS: Levemir Flexpen 100 UNITS/ML PEN SC SCH (08:34)
[2017-01-09] MEDS: Lisinopril 5 MG TAB PO SCH (21:08)
[2017-01-09] MEDS: Atorvastatin Calcium 10 MG TAB PO SCH (21:08)
[2017-01-09] MEDS: HumaLOG 300 UNITS/3 ML VIAL SC PRN (21:09)
[2017-01-09] MEDS: Zolpidem Tartrate 5 MG TAB PO PRN (21:42)
[2017-01-10] MEDS: HYDROcodone/Acetaminophen 10/325 mg Tablet PO PRN ×5 (03:21→21:21)
[2017-01-10] MEDS: HumaLOG 300 UNITS/3 ML VIAL SC PRN (06:12)
[2017-01-10] MEDS: Furosemide 20 MG TAB PO SCH (08:19)
[2017-01-10] MEDS: Sulfameth/Trimethoprim DS 800-160mg TAB PO SCH ×2 (08:19→21:20)
[2017-01-10] MEDS: Metoprolol Tartrate 25 MG TAB PO SCH ×2 (08:19→21:21)
[2017-01-10] MEDS: Aspirin 325 MG TAB PO SCH (08:19)
[2017-01-10] MEDS: Pregabalin 100 MG CAP PO SCH ×3 (08:19→21:20)
[2017-01-10] MEDS: Levemir Flexpen 100 UNITS/ML PEN SC SCH (08:33)
[2017-01-10] MEDS: Polyethylene Glycol 3350 17 GM Packet PO SCH (09:55)
--- NOTE | 2017-01-10 12:11 | PRG ---
DATE OF SERVICE: 01/10/2017 SUBJECTIVE: Mr. Paige is doing well. Denies any complaints, resting comfortably, tolerating his t herapy, swelling much improved in his left knee. OBJECTIVE: VITAL SIGNS: He is afebrile, heart rate is 67, respirations are 19, oxygen saturation is 98%, blood pressure 116/87. CARDIOVASCULAR: S1, S2 plus. RESPIRATORY: Normal vesicular breath sounds. ABDOMEN: Soft, nontender, bowel sounds heard in all quadrants. EXTREMITIES: Without cyanosis or clubbing. Left knee with improved swelling. Incision is healthy. IMPRESSION: 1. Degenerative joint disease, status post total left knee replacement. 2. Coronary artery disease. 3. Chronic obstructive pulmonary disease. 4. Diabetes mellitus type 2. 5. Hypertension. PLAN: 1. Continue current medications. 2. Nutritional support. 3. Accu-Cheks with sliding scale coverage. 4. DVT and stress ulcer prophylaxis. 5. Decubitus precautions. 6. Again, reinforced the risks of continued smoking.
[2017-01-10] MEDS: Zolpidem Tartrate 5 MG TAB PO PRN (21:21)
[2017-01-10] MEDS: Lisinopril 5 MG TAB PO SCH (21:21)
[2017-01-10] MEDS: Atorvastatin Calcium 10 MG TAB PO SCH (21:21)
[2017-01-11] MEDS: HYDROcodone/Acetaminophen 10/325 mg Tablet PO PRN ×5 (02:04→22:28)
[2017-01-11] MEDS: Polyethylene Glycol 3350 17 GM Packet PO SCH (07:50)
[2017-01-11] MEDS: Furosemide 20 MG TAB PO SCH (07:50)
[2017-01-11] MEDS: Aspirin 325 MG TAB PO SCH (07:51)
[2017-01-11] MEDS: Pregabalin 100 MG CAP PO SCH ×3 (07:51→21:48)
[2017-01-11] MEDS: Sulfameth/Trimethoprim DS 800-160mg TAB PO SCH (07:53)
[2017-01-11] MEDS: Metoprolol Tartrate 25 MG TAB PO SCH ×2 (07:53→21:48)
[2017-01-11] MEDS: Levemir Flexpen 100 UNITS/ML PEN SC SCH (07:55)
--- NOTE | 2017-01-11 15:25 | PRG ---
DATE OF SERVICE: 01/11/2017 SUBJECTIVE: Mr. Paige is doing well. Denies any complaints, resting comfortably, tolerating his m edications. OBJECTIVE: VITAL SIGNS: He is afebrile, heart rate is 60, respirations 20, oxygen saturation 95%, blood pressu re 124/58. CARDIOVASCULAR SYSTEM: S1, S2 plus. RESPIRATORY SYSTEM: Normal vesicular breath sounds. ABDOMEN: Soft, nontender, bowel sounds heard in all quadrants. EXTREMITIES: Without cyanosis or clubbing. Left knee incision looks healthy. IMPRESSION: 1. Status post left knee replacement. 2. Diabetes mellitus type 2. 3. Hypertension. 4. Dyslipidemia. 5. Coronary artery disease. 6. Chronic obstructive pulmonary disease. PLAN: 1. Continue current medications. 2. Physical therapy. 3. Nutritional support. 4. Recheck laboratory values. 5. Dr. Nisha Brownlee back tonight. 6. An 1800 calorie heart healthy diet.
[2017-01-11] MEDS: Lisinopril 5 MG TAB PO SCH (21:47)
[2017-01-11] MEDS: Atorvastatin Calcium 10 MG TAB PO SCH (21:48)
[2017-01-12] MEDS: HYDROcodone/Acetaminophen 10/325 mg Tablet PO PRN ×5 (03:19→21:49)
[2017-01-12 05:34] LABS: #Basophils 0.1 thou/uL (0.0-0.2); #Eosinphils 0.5 thou/uL (0.0-0.7); #Lymphocytes 3.1 thou/uL (1.20-3.40); #Monocytes 0.8 thou/uL (0.11-0.59); #Neutrophils 7.3 thou/uL (1.40-6.50); %Basophils 1.2 % (0.0-1.0); %Eosinophils 4.2 % (0.0-10.0); %Lymphocytes 26.5 % (21.0-51.0); %Monocytes 6.5 % (0.0-10.0); Hematocrit 36.8 % (42.0-52.0); Mean Platelet Volume 7.6 fL (7.4-10.4); Red Blood Cell (RBC) Count 3.93 mill/uL (4.70-6.10); White Blood Cell (WBC) Count 11.8 thou/uL (4.8-10.8)
[2017-01-12 05:42] LABS: Anion Gap 16 mmol/L (10-20); BUN (Urea Nitrogen) 50 mg/dL (8.4-25.7); Calc. Creatinine Clearance 58 mL/min (70-130); Calcium 9.5 mg/dL (7.8-10.44); Carbon Dioxide 22 mmol/L (22-29); Chloride 104 mmol/L (98-107); Estimated GFR-MDRD 32
[2017-01-12] MEDS: Aspirin 325 MG TAB PO SCH (08:53)
[2017-01-12] MEDS: Pregabalin 100 MG CAP PO SCH ×3 (08:53→21:12)
[2017-01-12] MEDS: Furosemide 20 MG TAB PO SCH (08:53)
[2017-01-12] MEDS: Levemir Flexpen 100 UNITS/ML PEN SC SCH (08:56)
[2017-01-12] MEDS: Metoprolol Tartrate 25 MG TAB PO SCH ×2 (08:56→21:13)
[2017-01-12] MEDS: Polyethylene Glycol 3350 17 GM Packet PO SCH (08:56)
--- NOTE | 2017-01-12 11:05 | PRG ---
DATE OF SERVICE: 01/12/2017 HISTORY OF PRESENT ILLNESS: Mr. Paige is a 56-year-old white male that had a total left knee done at [facility] by Dr. Niño. He did very well, but had quite a bit of pain and so me swelling. He was transferred to [facility] for physical therapy and occupational therapy. He developed a boil on his left elbow, which was looked infected and he was started on so me Bactrim-DS. We did a white count which was 13,000. He has remained on the Bactrim since then. He has no complaints. He states he is getting stronger and he is walking better. PHYSICAL EXAMINATION: VITAL SIGNS: Blood pressure last night 122/61, pulse 60-68, respirations 20, O2 sat 93-97% on room air, T-max 98.3. GENERAL: This is a well-developed, well-nourished, very pleasant, somewhat obese white male in no a pparent distress at this time. HEENT: Reveals normocephalic, nontraumatic cranium. Pupils are equally round and reactive. Extrao cular movements intact. Nose and throat slightly dry. NECK: Supple, without masses, nodes or bruits. CHEST: Clear to auscultation. No rales, rhonchi or wheezes are heard. CARDIOVASCULAR: Reveals a regular rate and rhythm and without murmurs, gallops or rubs. ABDOMEN: Obese, soft, nontender, without organomegaly. Normal bowel sounds are noted. No rebound or guarding is noted. : Deferred. EXTREMITIES: Reveal left knee is much improved, much less swelling and not hot, not warm. No signi ficant pain. His walking is much improved. IMPRESSION: 1. Total left knee replacement, less swelling. 2. Presently on Bactrim-DS for boil of the left elbow. 3. Coronary artery disease. 4. Chronic obstructive pulmonary disease, still smoking a pack a day. 5. Diabetes type 2, stable. 6. Hypertension. 7. Tobacco abuse. PLAN: 1. Continue Bactrim-DS for 14 days. 2. Continue physical therapy and occupational therapy. 3. Continue DVT and stress ulcer prophylaxis. 4. Continue Accu-Cheks a.c. and at bedtime. 5. Continue pain control. 6. Continue prophylaxis for constipation with MiraLax. 7. Continue decubitus precautions. 8. Encouraged the patient to stop smoking.
--- NOTE | 2017-01-12 12:31 | PRG ---
DATE OF SERVICE: 01/09/2017 DATE OF ADMISSION: 12/26/2016 HISTORY OF PRESENT ILLNESS: The patient is a 56-year-old white male who had total left knee done at [facility]. He did very well, but was transferred to [facility] since he lives by himself. He was not independent and has quite a bit of pain. While in the hospital, his knee has been somewhat red, more swollen and he had a boil on his left el bow, which provoked to white count that was elevated like 13,000. We started him on Bactrim-DS and hopes that he would not get an infection in his prosthesis. He has actually did not been doing very well. OBJECTIVE: VITAL SIGNS: Revealed blood pressure 100/50, pulse 81-71, respirations 18-20, O2 sat 93 %-95%. T-max is 98.6. PHYSICAL EXAMINATION: GENERAL: This is a well-developed, well-nourished, very pleasant white male in no apparent distress at this time. HEENT: Reveals normocephalic, nontraumatic cranium. Pupils are equal, round, and reactive. Extrao cular movements are intact. Nose and throat are slightly dry. NECK: Supple, without masses, nodes or bruits. CHEST: Clear to auscultation, no rales, rhonchi or wheezes are heard. CARDIOVASCULAR: Reveals a regular rate and rhythm without murmurs, gallops or rubs. ABDOMEN: Obese, soft, nontender, without organomegaly, normal bowel sounds are noted. No rebound o r guarding is noted. : Deferred. EXTREMITIES: Reveal no clubbing, cyanosis or edema. Left knee is still somewhat swollen, not read. He states, he began to feel better and did walk around a quad this morning. IMPRESSION: 1. Total left knee replacement with less swelling, presently on Bactrim-DS for the left boil on his left elbow and his knee. 2. Coronary artery disease. 3. Chronic obstructive pulmonary disease, still smoking a pack a day. 4. Diabetes type 2. 5. Hypertension. 6. Tobacco abuse. PLAN: 1. Continue Bactrim-DS for 14 days. 2. Continue physical therapy and occupational therapy. 3. Continue DVT and stress ulcer prophylaxis. 4. Continue Accu-Cheks a.c. and at bedtime. 5. Continue pain control. 6. Continue prophylaxis with MiraLax for constipation. 7. Continue decubitus precautions. 8. Encourage the patient to stop smoking.
[2017-01-12] MEDS: Atorvastatin Calcium 10 MG TAB PO SCH (21:13)
[2017-01-12] MEDS: Lisinopril 5 MG TAB PO SCH (21:13)
[2017-01-12] MEDS: Zolpidem Tartrate 5 MG TAB PO PRN (21:49)
[2017-01-13] MEDS: HYDROcodone/Acetaminophen 10/325 mg Tablet PO PRN ×4 (05:02→21:22)
[2017-01-13] MEDS: Aspirin 325 MG TAB PO SCH (08:57)
[2017-01-13] MEDS: Metoprolol Tartrate 25 MG TAB PO SCH ×2 (08:57→21:21)
[2017-01-13] MEDS: Pregabalin 100 MG CAP PO SCH ×3 (08:58→21:20)
[2017-01-13] MEDS: Levemir Flexpen 100 UNITS/ML PEN SC SCH (08:59)
[2017-01-13] MEDS: Furosemide 20 MG TAB PO SCH (08:59)
[2017-01-13] MEDS: Polyethylene Glycol 3350 17 GM Packet PO SCH (09:00)
--- NOTE | 2017-01-13 14:42 | PRG ---
DATE OF SERVICE: 01/13/2017 DATE OF ADMISSION: 12/26/2016 HISTORY OF PRESENT ILLNESS: Mr. Paige is a 56-year-old white male who had a total left knee down a [facility] by Dr. Niño. Postoperatively, he had swelling, pain, and who was u nable to walk very far. He was eventually transferred to [facility] for physical th erapy and occupational therapy. He has done actually very well here first couple days. He had a ve ry poor walking skills, he is much improved. His pain has gotten much better. He has no complaints. He is supposed to see Dr. Niño tomorrow morning. He is doing well off his es timated discharge day is on Thursday. Vital signs reveal blood pressure 131/59, pulse 65-68, respirations 20, O2 sat 93%-97% room air, and T-max 97.3. LABORATORY DATA: Laboratory yesterday reveals white count 11,800 with hemoglobin 12.0, hematocrit 3 6.8. His sodium is 136, potassium 6.2, chloride 104, carbon dioxide 22, BUN 50, creatinine 2.15. The patient needs to drink more liquids. Point of care sugars were all excellent. PHYSICAL EXAMINATION: GENERAL: This is a well-developed, well-nourished, very pleasant, obese white male in no apparent d istress at this time. HEENT: Reveals normocephalic, nontraumatic cranium. Pupils are equally round and reactive. Extrao cular movements intact. Nose and throat slightly dry. NECK: Supple, without masses, nodes or bruits. CHEST: Clear to auscultation. No rales, rhonchi or wheezes are heard. CARDIOVASCULAR: Reveals a regular rate and rhythm without murmurs, gallops or rubs. ABDOMEN: Obese, soft, nontender, without organomegaly. Normal bowel sounds are noted. : Deferred. EXTREMITIES: Reveal no clubbing, cyanosis. The left knee is much less swelling, slightly pudgy. Albert delgado is supposed to see Dr. Gray tomorrow. He continues to do and will be discharged on Thursday morning. IMPRESSION: 1. Left total knee replacement, less swelling. 2. Presently on Bactrim DS for boils, left elbow. 3. Coronary artery disease. 4. Chronic obstructive pulmonary disease, still smokes a pack a day. 5. Diabetes type 2. 6. Hypertension. 7. Tobacco abuse. PLAN: 1. Continue Bactrim DS 14 days. 2. Continue physical therapy and occupational therapy. 3. Continue DVT and stress ulcer prophylaxis. 4. Continue Accu-Cheks a.c. and at bedtime. 5. Continue pain control. 6. Continued prophylaxis for constipation with MiraLax. 7. Continue decubitus precautions. 8. Encourage the patient to stop smoking.
[2017-01-13] MEDS: Zolpidem Tartrate 5 MG TAB PO PRN (21:20)
[2017-01-13] MEDS: Lisinopril 5 MG TAB PO SCH (21:21)
[2017-01-13] MEDS: Atorvastatin Calcium 10 MG TAB PO SCH (21:21)
[2017-01-14] MEDS: HYDROcodone/Acetaminophen 10/325 mg Tablet PO PRN ×4 (04:34→21:35)
[2017-01-14] MEDS: HumaLOG 300 UNITS/3 ML VIAL SC PRN ×2 (06:14→17:12)
[2017-01-14] MEDS: Aspirin 325 MG TAB PO SCH (08:29)
[2017-01-14] MEDS: Furosemide 20 MG TAB PO SCH (08:29)
[2017-01-14] MEDS: Metoprolol Tartrate 25 MG TAB PO SCH ×2 (08:29→21:36)
[2017-01-14] MEDS: Pregabalin 100 MG CAP PO SCH ×3 (08:30→21:35)
[2017-01-14] MEDS: Levemir Flexpen 100 UNITS/ML PEN SC SCH (08:31)
[2017-01-14] MEDS: Polyethylene Glycol 3350 17 GM Packet PO SCH (08:31)
--- NOTE | 2017-01-14 12:33 | PRG ---
DATE OF SERVICE: 01/14/2017. SUBJECTIVE: Mr. Paige is a very pleasant 56-year-old white male who had a total knee done by Dr. Lynda pagan at [facility]. Postoperatively, he has significant swelling, was unable to walk very far. Eventually was transferred to [facility] for physical therapy and occupationa l therapy. He has done actually very well here first couple days and then we starts some more walki ng skills, he is doing very well. The patient did see Dr. Meza this morning, states he is doing very well and we moved up his discha rge date from Thursday to , which is tomorrow. OBJECTIVE: VITAL SIGNS: Revealed blood pressure is 120/56, pulse is 67-74, respirations 20-22, O2 saturation 95% on room air, T-max 97.6. PHYSICAL EXAMINATION: GENERAL: This is a well-developed, well-nourished, very pleasant white male in no apparent distress at this time. HEENT: Reveals normocephalic, nontraumatic cranium. Pupils are equally round and reactive. Extrao cular movements intact. Nose and throat slightly dry. NECK: Supple, without masses, nodes or bruits. LUNGS: Chest is clear to auscultation. No rales, rhonchi or wheezes are heard. CARDIOVASCULAR: Reveals a regular rate and rhythm without murmurs, gallops or rubs. ABDOMEN: Obese, soft, nontender, without organomegaly. Normal bowel sounds are noted. No rebound or guarding is noted. GENITOURINARY: Deferred. EXTREMITIES: Reveal no clubbing, cyanosis or edema. Left knee is doing extremely well, not red, no t inflamed. He will be ready for discharge tomorrow. We will continue his previous medications. IMPRESSION: 1. Left total knee replacement, less swelling. 2. Finishing Bactrim DS. 3. Coronary artery disease. 4. Chronic obstructive pulmonary disease, still smokes a pack a day. 5. Diabetes type 2. 6. Hypertension. 7. Tobacco abuse. PLAN: 1. Continue Bactrim DS for a full 14 days. 2. Continue physical therapy, occupational therapy. 3. Continue deep venous thrombosis and stress ulcer prophylaxes. 4. Continue Accu-Cheks a.c. and at bedtime. 5. Continue follow pain control. 6. Prophylaxis, constipation with MiraLax. 7. Continue decubitus precautions. 8. Encourage the patient stop smoking.
[2017-01-14] MEDS: Zolpidem Tartrate 5 MG TAB PO PRN (21:35)
[2017-01-14] MEDS: Atorvastatin Calcium 10 MG TAB PO SCH (21:36)
[2017-01-14] MEDS: Lisinopril 5 MG TAB PO SCH (21:39)
[2017-01-15] MEDS: HYDROcodone/Acetaminophen 10/325 mg Tablet PO PRN ×3 (04:14→12:36)
[2017-01-15] MEDS: HumaLOG 300 UNITS/3 ML VIAL SC PRN (05:49)
[2017-01-15 05:56] LABS: #Basophils 0.1 thou/uL (0.0-0.2); #Eosinphils 0.5 thou/uL (0.0-0.7); #Lymphocytes 2.2 thou/uL (1.20-3.40); #Monocytes 0.9 thou/uL (0.11-0.59); #Neutrophils 7.6 thou/uL (1.40-6.50); %Basophils 1.1 % (0.0-1.0); %Eosinophils 4.8 % (0.0-10.0); %Lymphocytes 19.5 % (21.0-51.0); %Monocytes 7.7 % (0.0-10.0); Hematocrit 36.5 % (42.0-52.0); Mean Platelet Volume 7.7 fL (7.4-10.4); Red Blood Cell (RBC) Count 3.91 mill/uL (4.70-6.10); White Blood Cell (WBC) Count 11.3 thou/uL (4.8-10.8)
[2017-01-15 06:09] LABS: Anion Gap 14 mmol/L (10-20); BUN (Urea Nitrogen) 42 mg/dL (8.4-25.7); Calc. Creatinine Clearance 86 mL/min (70-130); Calcium 9.6 mg/dL (7.8-10.44); Carbon Dioxide 24 mmol/L (22-29); Chloride 104 mmol/L (98-107); Estimated GFR-MDRD 50
--- NOTE | 2017-01-15 06:16 | DIS ---
DATE OF SERVICE: 01/15/2017 Mr. Paige is a pleasant 56-year-old white male that had a total knee done by Dr. Meza at [facility]. Postoperatively, he had significant swelling and was able to walk very far. Eventuall y he was transferred to [facility] for physical therapy and occupational therapy and pain management. He has actually done very well. On arrival here, he had a large boil on his left elbow that was infected and we were worried that he may get an infection in his knee since he has h ad that significant times in the past. He has actually done very well and was started on Bactrim-DS for that and that has pretty much resol makayla. We are doing lab work this morning and then he is going to be able to be discharged. The patient is to see Dr. Meza in followup in about 2 months. VITAL SIGNS: Vital signs today reveal blood pressure 121/59, pulse 67-68, respirations 18-22, O2 sa t 94-95%, T-max 97.0. LABORATORIES: Revealed blood sugar last night 119, before supper 202, before lunch 133. The patient's labs this morning to check his C-reactive protein, CBC, comp met and sed rate. PHYSICAL EXAMINATION: GENERAL: This is a well-developed, well-nourished, very pleasant white male in no apparent distress at this time. He is excited about going home. HEENT: Reveals normocephalic, nontraumatic cranium. Pupils equal, round, and reactive. Extraocula r movements intact. Nose and throat slightly dry. NECK: Supple, without masses, nodes or bruits. CHEST: Clear to auscultation, no rales, rhonchi or wheezes are heard. HEART: Regular rate and rhythm without murmurs, gallops or rubs. ABDOMEN: Obese, soft, nontender, without organomegaly. Normal bowel sounds are noted. No rebound or guarding is noted. GENITOURINARY: Deferred. EXTREMITIES: No clubbing, cyanosis or edema. Left knee is doing extremely well, it is not red, it is not warm, it is not hot, not swollen. No edema. Dr. Meza saw him 2 days ago and was very plea sed. He will not need any more antibiotics. DISCHARGE MEDICATIONS: Reveal the patient will be on the following medications: 1. Aspirin 325 daily. 2. Lipitor 10 mg at bedtime. 3. Lasix 20 mg daily. 4. Levemir 25 units subcutaneous each a.m. 5. Sliding scale Humalog 2 to 6 units p.r.n. 6. Lisinopril 5 mg daily. 7. Metformin 1000 mg twice daily. 8. Metoprolol tartrate 25 mg daily. 9. Lyrica 100 mg 3 times daily. ASSESSMENT: 1. Total left knee replacement by Dr. Meza doing well. 2. Coronary artery disease. 3. Chronic obstructive pulmonary disease, the patient still smokes a pack a day. 4. Diabetes type 2. 5. Hypertension. 6. Tobacco abuse. 7. Generalized weakness. PLAN: 1. The patient will be discharged today. 2. We will consult home health, [facility], to continue with physical therapy and occupational thera py and to watch his blood pressure and his diabetes. 3. Continue DVT and stress ulcer prophylaxis. 4. Continue Accu-Cheks a.c. and at bedtime. 5. Continue to follow pain control. 6. Prophylaxis for constipation with MiraLax. 7. Continue decubitus precautions. 8. Encourage the patient to stop smoking. 9. The patient states he has all of his medications at home except for his Lyrica, we will call in his Lyrica to [facility].
[2017-01-15] MEDS: Aspirin 325 MG TAB PO SCH (08:52)
[2017-01-15] MEDS: Metoprolol Tartrate 25 MG TAB PO SCH (08:52)
[2017-01-15] MEDS: Furosemide 20 MG TAB PO SCH (08:52)
[2017-01-15] MEDS: Pregabalin 100 MG CAP PO SCH ×2 (08:52→15:01)
[2017-01-15] MEDS: Polyethylene Glycol 3350 17 GM Packet PO SCH (08:54)
[2017-01-15] MEDS: Levemir Flexpen 100 UNITS/ML PEN SC SCH (08:55)
[2017-01-15 12:02] VITALS: BP 136/71; TEMP 97.1
== END 2017-01-15 14:20 | disposition home health service (06) | DRG 561 ==
LOC: NAV ACUTE 14:34
PROVIDERS: ADMIT Family Medicine; ATTEND Internal Medicine
DX: Z47.1 Aftercare following joint replacement surgery (principal); G89.18 Other acute postprocedural pain; E11.42 Type 2 diabetes mellitus with diabetic polyneuropathy; E11.51 Type 2 diabetes mellitus with diabetic peripheral angiopathy without gangrene; L76.82 Other postprocedural complications of skin and subcutaneous tissue; Z96.652 Presence of left artificial knee joint; L02.424 Furuncle of left upper limb; I25.10 Atherosclerotic heart disease of native coronary artery without angina pectoris; R53.1 Weakness; R26.2 Difficulty in walking, not elsewhere classified; K59.00 Constipation, unspecified; Z23 Encounter for immunization; M17.11 Unilateral primary osteoarthritis, right knee; J44.9 Chronic obstructive pulmonary disease, unspecified; F17.210 Nicotine dependence, cigarettes, uncomplicated; I10 Essential (primary) hypertension; Z89.422 Acquired absence of other left toe(s); Z89.421 Acquired absence of other right toe(s)
CPT/HCPCS: 36415; 36416; 80048; 80053; 85007; 85025; 85027; 85652; 86140; G8978-GP-CJ; G8979-GP-CI; J1815

== ENCOUNTER 2017-02-19 15:17 | Outpatient (CLI) | payer MEDICARE ==
[2017-02-19 15:47] LABS: Anion Gap 13 mmol/L (10-20); BUN (Urea Nitrogen) 27 mg/dL (8.4-25.7); Calc. Creatinine Clearance 0 mL/min (70-130); Calcium 8.9 mg/dL (7.8-10.44); Carbon Dioxide 26 mmol/L (22-29); Chloride 102 mmol/L (98-107); Estimated GFR-MDRD 55; Glucose 323 mg/dL (70-105); Potassium 4.6 mmol/L (3.5-5.1); Sodium 136 mmol/L (136-145)
== END 2017-02-19 15:18 | disposition home or self-care (01) ==
LOC: NAV LAB 15:17
PROVIDERS: ATTEND Internal Medicine
DX: N17.9 Acute kidney failure, unspecified (principal)
CPT/HCPCS: 36415; 80048

== ENCOUNTER 2017-06-23 10:06 | Outpatient (CLI) | payer MEDICARE ==
[2017-06-23 12:53] LABS: #Basophils 0.1 thou/uL (0.0-0.2); #Eosinphils 0.6 thou/uL (0.0-0.7); #Lymphocytes 3.6 thou/uL (1.20-3.40); #Monocytes 0.5 thou/uL (0.11-0.59); #Neutrophils 7.8 thou/uL (1.40-6.50); %Basophils 1.1 % (0.0-1.0); %Eosinophils 4.5 % (0.0-10.0); %Lymphocytes 28.2 % (21.0-51.0); %Neutrophils 62.2 % (42.0-75.0); Hemoglobin 14.9 g/dL (14.0-18.0); Mean Corpuscular HGB CONC 33.1 g/dL (32.0-36.0); Mean Corpuscular Volume 90.8 fl (80.0-94.0); Mean Platelet Volume 10.5 fL (7.4-10.4); Platelet Count 224 thou/uL (130-400); RBC Distribution Width 11.6 % (11.5-14.5); Red Blood Cell (RBC) Count 4.97 mill/uL (4.70-6.10); White Blood Cell (WBC) Count 12.6 thou/uL (4.8-10.8)
[2017-06-23 18:18] LABS: ALT (SGPT) 23 U/L (8-55); AST (SGOT) 15 U/L (5-34); Albumin 3.9 g/dL (3.5-5.0); Alkaline Phosphatase 224 U/L (40-150); Anion Gap 20 mmol/L (10-20); BUN (Urea Nitrogen) 29 mg/dL (8.4-25.7); Bilirubin, Direct 0.2 mg/dL (0.1-0.3); Bilirubin, Total 0.5 mg/dL (0.2-1.2); Calc. Creatinine Clearance 0 mL/min (70-130); Calcium 9.4 mg/dL (7.8-10.44); Carbon Dioxide 23 mmol/L (22-29); Cardiac Risk 3.2 (Less than 4.5); Chloride 99 mmol/L (98-107); Cholesterol 142 mg/dl (< 200 Desired); Estimated GFR-MDRD 47; Glucose 528 mg/dL (70-105); HDL Cholesterol 45 mg/dL (>60 Neg Risk); LDL Cholesterol, Calculated 69 mg/dL; Potassium 4.5 mmol/L (3.5-5.1); Protein, Total 6.6 g/dL (6.0-8.3); Sodium 137 mmol/L (136-145); Triglycerides 142 mg/dL (Less than 150)
[2017-06-23 18:20] LABS: Hemoglobin A1c 15.8 % (4.0-6.0)
== END 2017-06-23 10:07 | disposition home or self-care (01) ==
LOC: NAVSJIPCSP 10:06
PROVIDERS: ATTEND Family Medicine
DX: Z12.5 Encounter for screening for malignant neoplasm of prostate (principal); E78.00 Pure hypercholesterolemia, unspecified; I25.10 Atherosclerotic heart disease of native coronary artery without angina pectoris; E10.9 Type 1 diabetes mellitus without complications; I10 Essential (primary) hypertension; R60.9 Edema, unspecified; Z79.899 Other long term (current) drug therapy
CPT/HCPCS: 36415; 80048; 80061; 80076; 83036; 84443; 85025

== ENCOUNTER 2017-11-06 14:58 | Inpatient (IN) | payer MEDICARE ==
[2017-11-06 16:04] VITALS: BMI 32.5
[2017-11-06] MEDS ORDERED: Ondansetron ODT 4 MG TAB PO PRN (18:53)
[2017-11-06] MEDS ORDERED: HYDROcodone/Acetaminophen 10/325 mg Tablet PO PRN (18:53)
[2017-11-06] MEDS: HYDROcodone/Acetaminophen 10/325 mg Tablet PO PRN ×2 (19:33→23:03)
[2017-11-06] MEDS ORDERED: VARENICLINE TARTRATE 1 MG PO SCH (21:00)
[2017-11-06] MEDS: Pregabalin 50 MG CAP PO SCH (21:49)
[2017-11-06] MEDS: Lisinopril 5 MG TAB PO SCH (21:49)
[2017-11-06] MEDS: Temazepam 15 MG CAP PO PRN (21:51)
[2017-11-06] MEDS: Docusate 100 MG CAP PO SCH (21:51)
[2017-11-06] MEDS: Aspirin 325 MG TAB PO SCH (21:51)
[2017-11-06] MEDS: Famotidine 20 MG TAB PO SCH (21:51)
[2017-11-06] MEDS: Metoprolol Tartrate 25 MG TAB PO SCH (21:51)
[2017-11-06] MEDS: Atorvastatin Calcium 10 MG TAB PO SCH (21:52)
[2017-11-07] MEDS: HYDROcodone/Acetaminophen 10/325 mg Tablet PO PRN ×5 (03:53→21:54)
[2017-11-07 06:03] LABS: #Basophils 0.2 thou/uL (0.0-0.2); #Eosinphils 0.4 thou/uL (0.0-0.7); #Lymphocytes 2.5 thou/uL (1.20-3.40); #Neutrophils 6.2 thou/uL (1.40-6.50); %Basophils 1.7 % (0.0-1.0); %Lymphocytes 24.6 % (21.0-51.0); %Monocytes 9.3 % (0.0-10.0); %Neutrophils 60.4 % (42.0-75.0); Hemoglobin 11.1 g/dL (14.0-18.0); Mean Corpuscular Hemoglobin 29.6 pg (27.0-31.0); Mean Corpuscular Volume 89.8 fl (80.0-94.0); Mean Platelet Volume 10.8 fL (7.4-10.4); Platelet Count 190 thou/uL (130-400); RBC Distribution Width 11.6 % (11.5-14.5); Red Blood Cell (RBC) Count 3.74 mill/uL (4.70-6.10); White Blood Cell (WBC) Count 10.2 thou/uL (4.8-10.8)
[2017-11-07 06:22] LABS: Anion Gap 11 mmol/L (10-20); BUN (Urea Nitrogen) 28 mg/dL (8.4-25.7); Calc. Creatinine Clearance 108 mL/min (70-130); Carbon Dioxide 27 mmol/L (22-29); Chloride 107 mmol/L (98-107); Estimated GFR-MDRD 64; Glucose 151 mg/dL (70-105); Sodium 141 mmol/L (136-145)
--- NOTE | 2017-11-07 06:49 | HP ---
DATE OF ADMISSION: 11/06/2017 Admission to the skilled unit at [facility]. The patient of Dr. Sina Brownlee. HISTORY OF PRESENT ILLNESS: The patient is a very pleasant 57-year-old white male who has significan t history of uncontrolled diabetes with subsequent complications of peripheral vascular disease, onofre nary artery disease status post coronary artery bypass graft and paroxysmal ventricular tachycardia, status post AICD placement, who has recently undergone an elective right total knee replacement with no complications and was admitted to [facility] for therapy. He denied any chest pain , palpitations, orthopnea, paroxysmal nocturnal dyspnea. He has stopped smoking and has been attempt ing to control his diabetes better. PAST SURGICAL HISTORY: Remarkable for bilateral great toe amputations, 11 back surgeries, 6 knee georgette geries and AICD placed, removed and then replaced and a left knee replacement. PAST MEDICAL HISTORY: As mentioned above for coronary artery disease, status post coronary artery by pass graft x4 and coronary stent. He also has the above-mentioned diabetes 2, only fair control with subsequent peripheral neuropathy. ALLERGIES: He has history of allergies to CYMBALTA, FLUOXETINE. MEDICATIONS ON ADMISSION: Included aspirin 325 daily, atorvastatin 10 nightly, furosemide 20 daily, hydrocodone 10/325 every 4 hours as needed, Levemir 46 units in the morning, metoprolol 25 twice bradford y, lisinopril at 5 mg nightly and Lyrica 100 mg 3 times daily. REVIEW OF SYSTEMS: HEENT: He denies any headaches, dizziness, change in vision or hearing, hoarsene ss or dysphagia. Pulmonary: He denied any cough, sputum production, pneumonia, asthma, tuberculosis . Cardiovascular: Denies any chest pain, orthopnea, paroxysmal nocturnal dyspnea or edema. Gastroi ntestinal: Denies any nausea, vomiting, diarrhea, constipation, abdominal pain. Genitourinary: Den ied dysuria, hematuria, nocturia. Musculoskeletal: Complains of significant pain in his right knee, but otherwise no complications, redness or drainage. Neurologic: Denies localized numbness, weakne ss in arms or extremities. PHYSICAL EXAMINATION: GENERAL: Patient is a middle-aged white male, appears in mild distress from right knee pain, oriente d x3 and cooperative. VITAL SIGNS: Blood pressure of 175/74. He has not received his pain medications. His temperature i s 98, pulse 89, respirations 24, O2 sats 96%. HEENT: Pupils are equal, round, and react to light and accommodation. Sclerae are anicteric. Conju nctivae pale. Oral mucous membranes well hydrated. NECK: Supple. There are no nodes or masses. JVP is not elevated. LUNGS: Clear. CARDIAC: Regular rhythm. No gallops or murmurs. AICD is in place. ABDOMEN: Soft, nontender with no masses or organomegaly. SKIN/EXTREMITIES: Display no edema, clubbing or cyanosis. There are bilateral amputation of great t oe. Left knee shows a healed left knee replacement, right knee shows some minimal swelling, but no e rythema and moderate tenderness. NEUROLOGICAL: Cranial nerves intact. Deep tendon reflexes 2+ and equal. Absent Babinskis. There i s decreased sensation to pinprick in both legs below the ankle. LABORATORY DATA: Show white count 10,100, hematocrit 35, hemoglobin 11. Most recent potassium 3.8, sodium 137, chloride 107, bicarbonate 26, BUN 37, creatinine 1.31. ASSESSMENT AND PLAN: A 57-year-old white male with a history of poorly controlled diabetes, subseque nt complication of coronary artery disease, peripheral neuropathy, peripheral vascular disease, statu s post coronary artery bypass graft, bilateral amputations of both toe who has stopped smoking and is controlling his diabetes better and now he has undergone a right total knee replacement with no comp lications at this time. He will be restarted back on his home medications and started on sliding sca le, monitored closely control of his diabetes and his blood pressure and monitor for signs of angina, chest pain while during therapy. He will also be continued on his Chantix and discontinue all nicot ine abuse.
[2017-11-07] MEDS: Levemir Flexpen 100 UNITS/ML PEN SC SCH (08:50)
[2017-11-07] MEDS: Famotidine 20 MG TAB PO SCH ×2 (08:52→21:46)
[2017-11-07] MEDS: Pregabalin 50 MG CAP PO SCH ×3 (08:52→21:53)
[2017-11-07] MEDS: Docusate 100 MG CAP PO SCH ×2 (08:52→21:46)
[2017-11-07] MEDS: Furosemide 20 MG TAB PO SCH (08:53)
[2017-11-07] MEDS: Metoprolol Tartrate 25 MG TAB PO SCH ×2 (08:53→21:47)
[2017-11-07] MEDS: Aspirin 325 MG TAB PO SCH ×2 (08:53→21:47)
[2017-11-07] MEDS ORDERED: VARENICLINE TARTRATE 1 MG PO SCH (09:00)
[2017-11-07] MEDS: VARENICLINE TARTRATE 0.5 MG PO SCH ×2 (10:53→21:46)
--- NOTE | 2017-11-07 17:22 | PRG ---
DATE OF SERVICE: 11/07/2017 SUBJECTIVE: The patient sitting up in chair, resting well. States that he feels well except for nirmala n in his right knee. He is having no shortness of breath, chest pain, nausea, or vomiting. LABORATORY DATA: Shows sodium 141, potassium 4.0, chloride 107, bicarbonate 27, BUN 28, creatinine 1 .16, glucose 151. Accu-Cheks range from 92 to 199, hematocrit 33, hemoglobin 11. White count 10,200 . ASSESSMENT: Resolving right total knee, stable type 2 diabetes with fair control, stable coronary ar darrion disease, no recurrent angina. PLAN: Continue pain relief. Continue physical therapy as tolerated. Continue Accu-Cheks. Monitor to control the diabetes.
[2017-11-07] MEDS ORDERED: Varenicline Tartrate 0.5 MG TAB ONE (21:00)
[2017-11-07] MEDS: Temazepam 15 MG CAP PO PRN (21:46)
[2017-11-07] MEDS: Lisinopril 5 MG TAB PO SCH (21:46)
[2017-11-07] MEDS: Atorvastatin Calcium 10 MG TAB PO SCH (21:47)
[2017-11-08] MEDS: HYDROcodone/Acetaminophen 10/325 mg Tablet PO PRN ×4 (03:38→21:17)
[2017-11-08] MEDS: Famotidine 20 MG TAB PO SCH ×2 (08:10→21:19)
[2017-11-08] MEDS: Docusate 100 MG CAP PO SCH ×2 (10:07→21:19)
[2017-11-08] MEDS: Pregabalin 50 MG CAP PO SCH ×3 (10:08→21:19)
[2017-11-08] MEDS: Metoprolol Tartrate 25 MG TAB PO SCH ×2 (10:08→21:19)
[2017-11-08] MEDS: Aspirin 325 MG TAB PO SCH ×2 (10:08→21:17)
[2017-11-08] MEDS: Furosemide 20 MG TAB PO SCH (10:08)
[2017-11-08] MEDS: VARENICLINE TARTRATE 0.5 MG PO SCH ×2 (10:10→21:17)
[2017-11-08] MEDS: Levemir Flexpen 100 UNITS/ML PEN SC SCH (10:12)
[2017-11-08] MEDS ORDERED: Pregabalin 50 MG CAP PO SCH (10:15)
[2017-11-08] MEDS: Atorvastatin Calcium 10 MG TAB PO SCH (21:19)
[2017-11-08] MEDS: Temazepam 15 MG CAP PO PRN (21:20)
[2017-11-08] MEDS: Lisinopril 5 MG TAB PO SCH (21:20)
[2017-11-09] MEDS: HYDROcodone/Acetaminophen 10/325 mg Tablet PO PRN ×4 (03:32→21:22)
[2017-11-09] MEDS: Aspirin 325 MG TAB PO SCH ×2 (08:48→21:22)
[2017-11-09] MEDS: Metoprolol Tartrate 25 MG TAB PO SCH ×2 (08:49→21:21)
[2017-11-09] MEDS: Docusate 100 MG CAP PO SCH ×2 (08:49→21:20)
[2017-11-09] MEDS: Famotidine 20 MG TAB PO SCH ×2 (08:49→21:21)
[2017-11-09] MEDS: Furosemide 20 MG TAB PO SCH (08:49)
[2017-11-09] MEDS: Pregabalin 50 MG CAP PO SCH ×3 (08:49→21:21)
[2017-11-09] MEDS: Levemir Flexpen 100 UNITS/ML PEN SC SCH (08:51)
[2017-11-09] MEDS: VARENICLINE TARTRATE 0.5 MG PO SCH ×2 (09:31→21:19)
[2017-11-09] MEDS: Atorvastatin Calcium 10 MG TAB PO SCH (21:21)
[2017-11-09] MEDS: Lisinopril 5 MG TAB PO SCH (21:22)
[2017-11-09] MEDS: Temazepam 15 MG CAP PO PRN (21:22)
--- NOTE | 2017-11-10 04:04 | PRG ---
DATE OF SERVICE: 11/08/2017 SUBJECTIVE: The patient feels much better. Still having some right knee pain, but had been taking h igher doses of hydrocodone at [facility]. OBJECTIVE: GENERAL: Shows right knee is swollen, no erythema, stable tenderness. VITAL SIGNS: Temperature 97.5, pulse 71, blood pressure 176/84, respirations 20, O2 sats 97%. LUNGS: Clear. CARDIAC: Examination showed regular rhythm. LABORATORY DATA: Shows Accu-Cheks ranged from 127-224. ASSESSMENT: 1. Right total knee replacement. No evidence of infection. 2. Stable type 2 diabetes, fair control. 3. Stable coronary artery disease, asymptomatic. PLAN: 1. Continue PT as tolerated. 2. Increase hydrocodone 10/325 two every 4 hours as needed for pain with limitation of 4000 mg of ib uprofen daily. 3. Continue Accu-Cheks, control diabetes.
[2017-11-10] MEDS: HYDROcodone/Acetaminophen 10/325 mg Tablet PO PRN ×4 (06:41→21:49)
--- NOTE | 2017-11-10 06:52 | PRG ---
DATE OF SERVICE: 11/09/2017 SUBJECTIVE: Patient feels much better, good control of pain. No nausea or vomiting. Good appetite. Ready to do the therapy tomorrow. OBJECTIVE: Vital signs show blood pressure 176/84, temperature 97.5, pulse 71, respirations 20, and O2 sats 97%. Accu-Cheks uncontrolled at 206 to 291. Lungs are clear. Cardiac examination edison wed regular rhythm. No gallops or murmurs. PLAN: 1. Increase Levemir to 48 units subcutaneous q.a.m. 2. Continue Accu-Cheks. 3. Continue hydrocodone as needed for pain.
[2017-11-10] MEDS: VARENICLINE TARTRATE 0.5 MG PO SCH (09:54)
[2017-11-10] MEDS: Levemir Flexpen 100 UNITS/ML PEN SC SCH (09:55)
[2017-11-10] MEDS: Metoprolol Tartrate 25 MG TAB PO SCH ×2 (09:56→21:48)
[2017-11-10] MEDS: Docusate 100 MG CAP PO SCH ×2 (09:56→21:47)
[2017-11-10] MEDS: Pregabalin 50 MG CAP PO SCH ×3 (09:56→21:48)
[2017-11-10] MEDS: Furosemide 20 MG TAB PO SCH (09:57)
[2017-11-10] MEDS: Famotidine 20 MG TAB PO SCH ×2 (09:57→21:47)
[2017-11-10] MEDS: Aspirin 325 MG TAB PO SCH ×2 (09:58→21:47)
[2017-11-10] MEDS: Lisinopril 5 MG TAB PO SCH (21:47)
[2017-11-10] MEDS: Atorvastatin Calcium 10 MG TAB PO SCH (21:47)
[2017-11-10] MEDS: Temazepam 15 MG CAP PO PRN (21:48)
[2017-11-10] MEDS: Varenicline Tartrate 0.5 MG TAB PO SCH (21:51)
[2017-11-11] MEDS: Milk Of Magnesia 30 ML UDCUP PO PRN (05:51)
[2017-11-11] MEDS: HYDROcodone/Acetaminophen 10/325 mg Tablet PO PRN ×5 (05:51→21:41)
[2017-11-11] MEDS: Levemir Flexpen 100 UNITS/ML PEN SC SCH (08:44)
[2017-11-11] MEDS: Pregabalin 50 MG CAP PO SCH ×3 (08:46→21:40)
[2017-11-11] MEDS: Furosemide 20 MG TAB PO SCH (08:49)
[2017-11-11] MEDS: Aspirin 325 MG TAB PO SCH ×2 (08:49→21:39)
[2017-11-11] MEDS: Famotidine 20 MG TAB PO SCH ×2 (08:49→21:39)
[2017-11-11] MEDS: Docusate 100 MG CAP PO SCH ×2 (08:49→21:39)
[2017-11-11] MEDS: Varenicline Tartrate 0.5 MG TAB PO SCH ×2 (08:49→21:39)
[2017-11-11] MEDS: Metoprolol Tartrate 25 MG TAB PO SCH ×2 (08:50→21:39)
--- NOTE | 2017-11-11 08:55 | PRG ---
DATE OF SERVICE: 11/10/2017 SUBJECTIVE: The patient feels well with decreased pain and increased appetite. No nausea or vomitin g. Has been up in the chair and cooperating with therapy. OBJECTIVE: VITAL SIGNS: Blood pressure 170/80, temperature 97.3, pulse 63, respirations 20, O2 sats 99%. LABORATORY DATA: Show Accu-Cheks elevated above 200, ranging from 221-260 despite increased insulin. ASSESSMENT: 1. Uncontrolled diabetes. We will monitor 1 more day, has recently increased dose of insulin and ma y need to titrate further. 2. Resolving right total knee with good pain control on hydrocodone. 3. Coronary artery disease, asymptomatic. 4. Peripheral vascular disease, asymptomatic.
[2017-11-11] MEDS: Atorvastatin Calcium 10 MG TAB PO SCH (21:39)
[2017-11-11] MEDS: Lisinopril 5 MG TAB PO SCH (21:39)
[2017-11-11] MEDS: Temazepam 15 MG CAP PO PRN (21:39)
--- NOTE | 2017-11-11 23:11 | PRG ---
DATE OF SERVICE: 11/11/2017 DATE OF ADMISSION: 11/06/2017 The patient is a pleasant 57-year-old white male that had an elective total right knee done without a ny complications. He was eventually stabilized and [facility]. He has no one at home to help him until he gets better. SUBJECTIVE: The patient states he is doing very well. He is very pleased because he was able to wal k down to therapy and ride the bicycle for 10 minutes, was unable to walk back, but he states he was very tired and very sore. He has no complaints except his sugars are little bit out of whack. LABORATORY DATA: Reveal sugars are the following, fasting this morning 148, before lunch 190, before supper 166, evening time is pending. PHYSICAL EXAMINATION: VITAL SIGNS: Reveal blood pressure 136/63, pulse 63-66, respirations 18-20, O2 sat 97% to 99%, T-max 97.9. GENERAL: This is a well-developed, well-nourished, very pleasant white male in no apparent distress at this time. HEENT: Reveals normocephalic, nontraumatic cranium. Pupils are equally round and reactive. Extraoc ular movements intact. Nose and throat are slightly dry. NECK: Supple, without masses, nodes or bruits. LUNGS: Chest is clear to auscultation. No rales, rhonchi or wheezes are heard. AICD is noted. ABDOMEN: Soft, nontender, without organomegaly, normal bowel sounds are noted. No rebound or guardi ng is noted. GENITOURINARY: Deferred. EXTREMITIES: Reveal no clubbing, cyanosis or edema. ASSESSMENT: 1. Diabetes out of control, but much improved. 2. Coronary artery disease. 3. Peripheral neuropathy. 4. Peripheral vascular disease. 5. Bilateral amputation of both great toes. 6. Total right knee replacement. 7. Hypertension. 8. Generalized weakness. PLAN: 1. Stress ulcer prophylaxis. 2. Continue to follow the patient's Accu-Cheks a.c. and at bedtime. 3. Continue to follow the patient's blood pressure closely. 4. Decubitus precautions. 5. Deep venous thrombosis prophylaxis. 6. Physical therapy and occupational therapy.
[2017-11-12] MEDS: HYDROcodone/Acetaminophen 10/325 mg Tablet PO PRN ×4 (06:06→21:03)
[2017-11-12] MEDS: Levemir Flexpen 100 UNITS/ML PEN SC SCH (09:05)
[2017-11-12] MEDS: Varenicline Tartrate 0.5 MG TAB PO SCH ×2 (09:06→21:01)
[2017-11-12] MEDS: Pregabalin 50 MG CAP PO SCH ×3 (09:06→21:02)
[2017-11-12] MEDS: Metoprolol Tartrate 25 MG TAB PO SCH ×2 (09:07→21:04)
[2017-11-12] MEDS: Famotidine 20 MG TAB PO SCH ×2 (09:07→21:04)
[2017-11-12] MEDS: Furosemide 20 MG TAB PO SCH (09:07)
[2017-11-12] MEDS: Docusate 100 MG CAP PO SCH ×2 (09:07→21:02)
[2017-11-12] MEDS: Aspirin 325 MG TAB PO SCH ×2 (09:07→21:04)
[2017-11-12] MEDS: Milk Of Magnesia 30 ML UDCUP PO PRN (09:08)
[2017-11-12] MEDS: Lisinopril 5 MG TAB PO SCH (21:03)
[2017-11-12] MEDS: Atorvastatin Calcium 10 MG TAB PO SCH (21:04)
--- NOTE | 2017-11-13 00:42 | PRG ---
DATE OF SERVICE: 11/12/2017 DATE OF ADMISSION: 11/06/2017 HISTORY OF PRESENT ILLNESS: Mr. Paige is a very pleasant 57-year-old white male that had an electiv e total knee done. This was done by orthopedic surgeon. He was eventually stabilized and transferre d to [facility] for continued physical therapy and occupational therapy. The patient is actually doing very well. He lives by himself and has no one to really help him at [facility]. He is admitted to the hospital for basically generalized physical therapy and occupational thera py. PHYSICAL EXAMINATION: VITAL SIGNS: Today reveal blood pressure this morning was 125/62, pulse 64 to 67, respirations 20, O 2 sat 94 to 96%, T-max 97.8. Blood sugars this morning reveal fasting 211 before lunch 213, before b edtime 214. Before bedtime last night was 166. GENERAL: This is a well-developed, well-nourished very pleasant white male in no apparent distress a t this time. HEENT: Reveals normocephalic, nontraumatic cranium. Pupils are equally round and reactive. Extraoc ular movements intact. Nose and throat are slightly dry. NECK: Supple, without masses, nodes or bruits. LUNGS: Chest is clear to auscultation. No rales, rhonchi, or wheezes are heard. No cough is noted. HEART: Reveals a regular rate and rhythm without murmurs, gallops, or rubs. ABDOMEN: Soft, nontender, without organomegaly, normal bowel sounds are noted. No rebound or guardi ng is noted. GENITOURINARY: Deferred. EXTREMITIES: Reveal no clubbing, cyanosis, or edema. The right knee is still somewhat swollen, not red, infected or oozing. ASSESSMENT: 1. Diabetes out of control. 2. Coronary artery disease. 3. Peripheral neuropathy. 4. Peripheral vascular disease. 5. Bilateral amputation of both great toes. 6. Total right knee replacement. 7. Hypertension. 8. Generalized weakness. PLAN: 1. Continue to monitor the patient's Accu-Cheks at a.c. and at bedtime. 2. Continue to follow the patient's blood pressure closely. 3. Stress ulcer prophylaxis extremity decubitus precautions. 4. Deep venous thrombosis prophylaxis. 5. Physical therapy and occupational therapy.
[2017-11-13] MEDS: HYDROcodone/Acetaminophen 10/325 mg Tablet PO PRN ×5 (05:58→21:58)
[2017-11-13] MEDS: Milk Of Magnesia 30 ML UDCUP PO PRN (05:59)
[2017-11-13] MEDS: Levemir Flexpen 100 UNITS/ML PEN SC SCH (09:11)
[2017-11-13] MEDS: Pregabalin 50 MG CAP PO SCH ×3 (09:13→21:57)
[2017-11-13] MEDS: Aspirin 325 MG TAB PO SCH ×2 (09:13→21:57)
[2017-11-13] MEDS: Metoprolol Tartrate 25 MG TAB PO SCH ×2 (09:14→21:57)
[2017-11-13] MEDS: Furosemide 20 MG TAB PO SCH (09:14)
[2017-11-13] MEDS: Famotidine 20 MG TAB PO SCH ×2 (09:14→21:57)
[2017-11-13] MEDS: Docusate 100 MG CAP PO SCH ×2 (09:14→21:57)
[2017-11-13] MEDS: Varenicline Tartrate 0.5 MG TAB PO SCH ×2 (09:14→21:58)
--- NOTE | 2017-11-13 13:26 | PRG ---
DATE OF SERVICE: 11/13/2017 DATE OF ADMISSION: 11/06/2017 HISTORY OF PRESENT ILLNESS: Mr. Paige is a very pleasant 57-year-old white male that had an electiv e total knee done on the right side. He was stabilized at [facility] and transfe rred to [facility] for continued physical therapy and occupational therapy. SUBJECTIVE: The patient states he is doing very well and the therapist states he is doing very well. Unfortunately, the patient [place] by [place]. He has no on e to help him. We need to make sure that he gets stronger so he can become somewhat independent by h imself. OBJECTIVE: VITAL SIGNS: Today reveal blood pressure 126/58, pulse 64-67, respirations 20, O2 saturation 94% on room air. T-max is 97.5. GENERAL: This is a well-developed, well-nourished, slightly obese white male in no apparent distress at this time. HEENT: Reveals normocephalic, nontraumatic cranium. Pupils are equally round and reactive. Extraoc ular movements intact. Nose and throat are slightly dry. NECK: Supple, without masses, nodes, or bruits. CHEST: Clear to auscultation. No rales, rhonchi, or wheezes are heard. HEART: Reveals a regular rate and rhythm without murmurs, gallops, or rubs. ABDOMEN: Soft, nontender, without organomegaly, normal bowel sounds are noted. No rebound or guardi ng is noted. : Exam is deferred. EXTREMITIES: Reveal the right knee is still somewhat swollen. Patient complains of slight patellar tenderness, but otherwise has no pain. It is not red, it is not swollen, it is not infected or oozin g. IMPRESSION: 1. Diabetes. 2. Coronary artery disease. 3. Peripheral neuropathy. 4. Peripheral vascular disease. 5. Bilateral amputation of both great toes. 6. Total right knee. 7. Hypertension. 8. Generalized weakness. PLAN: 1. Continue to follow the patient's physical therapy and occupational therapy and make sure he maxes out. 2. Continue to follow the patient's diabetes with Accu-Cheks a.c. and at bedtime, most likely tomorr ow we will adjust his insulin. 3. Continue all the patient's blood pressure pills. 4. Continue prophylactic stress ulcer prophylaxis. 5. Continue decubitus precautions. 6. Continue deep venous thrombosis prophylaxis. 7. Continued physical therapy and occupational therapy.
[2017-11-13] MEDS: Lisinopril 5 MG TAB PO SCH (21:57)
[2017-11-13] MEDS: Atorvastatin Calcium 10 MG TAB PO SCH (21:57)
[2017-11-13] MEDS: Temazepam 15 MG CAP PO PRN (21:57)
[2017-11-14] MEDS: HYDROcodone/Acetaminophen 10/325 mg Tablet PO PRN ×5 (06:20→23:43)
[2017-11-14] MEDS: Levemir Flexpen 100 UNITS/ML PEN SC SCH (09:36)
[2017-11-14] MEDS: Varenicline Tartrate 0.5 MG TAB PO SCH ×2 (09:37→21:26)
[2017-11-14] MEDS: Docusate 100 MG CAP PO SCH ×2 (09:37→21:28)
[2017-11-14] MEDS: Pregabalin 50 MG CAP PO SCH ×3 (09:37→21:27)
[2017-11-14] MEDS: Famotidine 20 MG TAB PO SCH ×2 (09:38→21:26)
[2017-11-14] MEDS: Metoprolol Tartrate 25 MG TAB PO SCH ×2 (09:38→21:26)
[2017-11-14] MEDS: Furosemide 20 MG TAB PO SCH (09:38)
[2017-11-14] MEDS: Aspirin 325 MG TAB PO SCH ×2 (09:38→21:26)
[2017-11-14] MEDS: Atorvastatin Calcium 10 MG TAB PO SCH (21:26)
[2017-11-14] MEDS: Lisinopril 5 MG TAB PO SCH (21:28)
[2017-11-14] MEDS: Temazepam 15 MG CAP PO PRN (21:28)
--- NOTE | 2017-11-14 21:35 | PRG ---
DATE OF ADMISSION: 11/06/2017 DATE OF SERVICE: 11/14/2017 HISTORY OF PRESENT ILLNESS: Mr. Paige is a 57-year-old white male who had an elective total knee do ne on the right side. This was done at [facility] and postoperatively he did wel l and was transferred to [facility] for continued physical therapy and occupational t herapy. SUBJECTIVE: The patient states he is doing very well. He did not have physical therapy because ther apists were off today. The patient is not able to walk because he has to have someone walk with him as there is no one available since the hospital was full of patients. OBJECTIVE: VITAL SIGNS: Reveal blood pressure today 121/56, pulse 62 and 67, respirations 18, O2 sat 97% to 98% , T-max 98.1. GENERAL: This is a well-developed, well-nourished, very pleasant white male, in no apparent distress at this time. HEENT: Reveals normocephalic, nontraumatic cranium. Pupils are equally round and reactive. Extraoc ular movements are intact. Nose and throat are slightly dry, but clear. NECK: Supple, without masses, nodes or bruits. LUNGS: Chest is clear to auscultation. No rales, no rhonchi, no wheezes are heard. The patient occ asionally puffs on his short cigar. CARDIOVASCULAR: Heart reveals a regular rate and rhythm without murmurs, gallops or rubs. ABDOMEN: Obese, soft, nontender, without organomegaly. Normal bowel sounds are noted. No rebound o r guarding is noted. : Deferred. EXTREMITIES: Reveal right knee postoperatively swollen, not red, not affect and not draining. IMPRESSION: 1. Diabetes, fair control. 2. Coronary artery disease. 3. Peripheral neuropathy. 4. Peripheral vascular disease. 5. Bilateral amputation of both great toes. 6. Total right knee. 7. Hypertension. 8. Generalized weakness. PLAN: 1. Continue to follow the patient's diabetes with Accu-Cheks a.c. and at bedtime. 2. Follow the patient's blood pressure closely. 3. Stress ulcer prophylaxis. 4. Decubitus precautions. 5. Deep venous thrombosis prophylaxis. 6. Continue physical therapy and occupational therapy.
[2017-11-15] MEDS: HYDROcodone/Acetaminophen 10/325 mg Tablet PO PRN ×3 (05:32→19:45)
[2017-11-15] MEDS: Levemir Flexpen 100 UNITS/ML PEN SC SCH (09:02)
[2017-11-15] MEDS: Aspirin 325 MG TAB PO SCH ×2 (10:02→21:30)
[2017-11-15] MEDS: Docusate 100 MG CAP PO SCH ×2 (10:02→21:30)
[2017-11-15] MEDS: Metoprolol Tartrate 25 MG TAB PO SCH ×2 (10:03→21:32)
[2017-11-15] MEDS: Pregabalin 50 MG CAP PO SCH ×3 (10:03→21:31)
[2017-11-15] MEDS: Varenicline Tartrate 0.5 MG TAB PO SCH ×2 (10:03→21:31)
[2017-11-15] MEDS: Famotidine 20 MG TAB PO SCH ×2 (10:03→21:32)
[2017-11-15] MEDS: Furosemide 20 MG TAB PO SCH (10:04)
--- NOTE | 2017-11-15 19:35 | PRG ---
DATE OF SERVICE: 11/15/2017 HISTORY: Mr. Paige is a 57-year-old very pleasant white male. He had a total knee done at [facility]. Postoperatively, he did well, but he needed further therapy so he w as transferred to [facility] for swing bed therapy and occupational therapy. SUBJECTIVE: The patient states he had a good day, but he rested because therapy was not here today. He states his knee swelling has gone down and the pain is significantly gone down. He states he is doing very well and is very pleased that his knee is doing so well. PHYSICAL EXAMINATION: VITAL SIGNS: Blood pressure 120/56, pulse 71 to 74, respirations 18-20, O2 sat 93-98%, temperature 9 8.8. GENERAL: This is a well-developed, well-nourished, very pleasant white male in no apparent distress at this time. HEENT: Reveals normocephalic, nontraumatic cranium. Pupils are equal, round, and reactive. Extraoc ular movements intact. Nose and throat are slightly dry. NECK: Supple, without masses, nodes or bruits. LUNGS: Chest is clear to auscultation, no rales, rhonchi, wheezes or cough is heard. CARDIOVASCULAR: Reveals a regular rate and rhythm without murmurs, gallops or rubs. ABDOMEN: Obese, soft, nontender. No organomegaly is noted. Normal bowel sounds are noted in all 4 quadrants. No rebound or guarding is noted. : Deferred. EXTREMITIES: Reveal right knee. Postoperative swelling has significantly gone down today. It is no t red, inflamed or infected. IMPRESSION: 1. Diabetes, fairly good control. 2. Coronary artery disease. 3. Peripheral neuropathy. 4. Peripheral vascular disease. 5. Bilateral amputation of both great toes. 6. Total right knee recently done at [facility]. 7. Hypertension. 8. Generalized weakness. PLAN: 1. Continue to follow the patient's sugars with Accu-Cheks a.c. and at bedtime. 2. Follow the patient's blood pressure closely. 3. Follow the patient for stress ulcer prophylaxis. 4. Decubitus precautions. 5. Deep venous thrombosis prophylaxis. 6. Continue physical therapy and occupational therapy.
[2017-11-15] MEDS: Atorvastatin Calcium 10 MG TAB PO SCH (21:31)
[2017-11-15] MEDS: Lisinopril 5 MG TAB PO SCH (21:32)
[2017-11-15] MEDS: Temazepam 15 MG CAP PO PRN (21:32)
[2017-11-16] MEDS: HYDROcodone/Acetaminophen 10/325 mg Tablet PO PRN ×5 (02:16→21:15)
[2017-11-16] MEDS: Levemir Flexpen 100 UNITS/ML PEN SC SCH (09:40)
[2017-11-16] MEDS: Aspirin 325 MG TAB PO SCH ×2 (09:41→21:17)
[2017-11-16] MEDS: Docusate 100 MG CAP PO SCH ×2 (09:41→21:16)
[2017-11-16] MEDS: Pregabalin 50 MG CAP PO SCH ×3 (09:42→21:17)
[2017-11-16] MEDS: Furosemide 20 MG TAB PO SCH (09:42)
[2017-11-16] MEDS: Varenicline Tartrate 0.5 MG TAB PO SCH ×2 (09:43→21:16)
[2017-11-16] MEDS: Famotidine 20 MG TAB PO SCH ×2 (09:43→21:17)
[2017-11-16] MEDS: Metoprolol Tartrate 25 MG TAB PO SCH ×2 (09:43→21:17)
--- NOTE | 2017-11-16 16:35 | PRG ---
DATE OF SERVICE: 11/16/2017 DATE OF ADMISSION: 11/06/2017 Mr. Paige is a very pleasant 57-year-old white male that had a total knee done by Dr. Meza at [facility]. Postoperatively, he did well, but he required further therapy, and he was transferr ed to [facility] swing bed for physical therapy and occupational therapy. SUBJECTIVE: The patient states he is doing well except he is having therapy right now and Charanjit is st retching his knee quite a bit. Obviously, he is doing actually very well and his swelling is down hi s knee. PHYSICAL EXAMINATION: VITAL SIGNS: Reveal this morning blood pressure 133/60, pulse 65-74, respirations 20, O2 sat 95%-98% , T-max 98.8. GENERAL: This is a well-developed, well-nourished, slightly obese white male, in no apparent distres s at this time. HEENT: Reveals normocephalic, nontraumatic cranium. Pupils are equally round and reactive. Extraoc ular movements intact. Nose and throat are slightly dry, but clear. NECK: Supple, without masses, nodes, or bruits. CHEST: Clear to auscultation. No rales, no rhonchi, no wheezes are heard. No cough is noted. HEART: Reveals a regular rate and rhythm without murmurs, gallops, or rubs. ABDOMEN: Soft and nontender. No organomegaly is noted. Normal bowel sounds are noted in all 4 quad rants. No rebound or guarding is noted. : Exam is deferred. EXTREMITIES: Reveal no clubbing, cyanosis, or edema. Right knee is much less swollen and has much b mechelle range of motion. ASSESSMENT: 1. Diabetes, good control. 2. Coronary artery disease. 3. Peripheral neuropathy. 4. Peripheral vascular disease. 5. Bilateral amputation, both great toes. 6. Total right knee done by Dr. Meza at [facility]. 7. Hypertension. 8. Generalized weakness. PLAN: 1. Continue to follow the patient's sugars with Accu-Cheks a.c. and at bedtime. 2. Follow the patient's blood pressure closely. 3. Continue stress ulcer prophylaxis. 4. Decubitus precautions. 5. Deep venous thrombosis prophylaxis. 6. Continue physical therapy and occupational therapy.
[2017-11-16] MEDS: Atorvastatin Calcium 10 MG TAB PO SCH (21:17)
[2017-11-16] MEDS: Temazepam 15 MG CAP PO PRN (21:17)
[2017-11-16] MEDS: Lisinopril 5 MG TAB PO SCH (21:18)
[2017-11-17] MEDS: HYDROcodone/Acetaminophen 10/325 mg Tablet PO PRN ×5 (03:36→21:25)
[2017-11-17] MEDS: Levemir Flexpen 100 UNITS/ML PEN SC SCH (09:36)
[2017-11-17] MEDS: Aspirin 325 MG TAB PO SCH ×3 (09:36→21:32)
[2017-11-17] MEDS: Pregabalin 50 MG CAP PO SCH ×4 (09:37→21:30)
[2017-11-17] MEDS: Varenicline Tartrate 0.5 MG TAB PO SCH ×2 (09:37→21:24)
[2017-11-17] MEDS: Famotidine 20 MG TAB PO SCH ×2 (09:41→21:25)
[2017-11-17] MEDS: Docusate 100 MG CAP PO SCH ×3 (09:41→21:32)
[2017-11-17] MEDS: Furosemide 20 MG TAB PO SCH (09:41)
[2017-11-17] MEDS: Metoprolol Tartrate 25 MG TAB PO SCH ×2 (09:41→21:25)
[2017-11-17] MEDS ORDERED: Loperamide HCl 2 MG CAP PO PRN (09:46)
--- NOTE | 2017-11-17 10:04 | PRG ---
DATE OF SERVICE: 11/17/2017 DATE OF ADMISSION: 11/06/2017 HISTORY OF PRESENT ILLNESS: The patient is a very pleasant 57-year-old white male that had a total k nee done by Dr. Meza at [facility]. Postoperatively, he did well. He was transferred to [facility] for continued physical therapy and occupational therapy. SUBJECTIVE: The patient states at 6:00 this morning he awakened with significant watery yellow diarr hea and he has had multiple episodes since then. He has felt cold, but not had a fever. PHYSICAL EXAMINATION: VITAL SIGNS: This morning reveal blood pressure 107/54, pulse 65-77, respirations 18-20, O2 sat 96%- 98%, T-max is 97.5. GENERAL: This is a well-developed, well-nourished, very pleasant white male in no apparent distress at this time. HEENT: Reveals normocephalic, nontraumatic cranium. Pupils are equally round and reactive. Extraoc ular movements are intact. Nose and throat are slightly dry. NECK: Supple without masses, nodes or bruits. LUNGS: Chest is clear to auscultation. The patient has no rales, rhonchi or wheezes. No cough is n oted. HEART: Reveals a regular rate and rhythm without murmurs, gallops or rubs. No tachycardia is noted. ABDOMEN: Soft and nontender. No organomegaly is noted. No significant tenderness is noted. The pa tient's bowel sounds are normal, maybe slightly hyperactive. No rebound or guarding is noted. : Exam is deferred. EXTREMITIES: Reveal no clubbing, cyanosis or edema. Right knee continues to do well. IMPRESSION: 1. New onset of diarrhea. 2. Diabetes. 3. Coronary artery disease. 4. Peripheral vascular disease. 5. Peripheral neuropathy. 6. Bilateral amputation of great both toes. 7. Total right knee done by Dr. Meza at [facility]. 8. Hypertension. 9. Generalized weakness. PLAN: 1. We will do CBC and comp met on him. Also, do Campylobacter stool samples. We will start the pat ient on some Imodium A-D. We will continue to follow the patient Accu-Cheks a.c. and at bedtime. Fo llow patient's blood pressure and follow the patient for stress ulcer prophylaxis. 2. Decubitus precautions. 3. Deep venous thrombosis prophylaxis. 4. Continue physical therapy and occupational therapy.
[2017-11-17 10:46] LABS: Band 14 % (5-11); Eosinophils 1 % (0-10); Lymphocytes 8 % (21-51); MDiff Complete? YES; Mean Corpuscular HGB CONC 32.7 g/dL (32.0-36.0); Mean Corpuscular Hemoglobin 29.6 pg (27.0-31.0); Mean Corpuscular Volume 90.5 fl (80.0-94.0); Mean Platelet Volume 9.4 fL (7.4-10.4); Monocytes 1 % (0-10); Neutrophil 76 % (42-75); PLT Morphology Comment Appears Adequate; Platelet Count 333 thou/uL (130-400); RBC Distribution Width 11.9 % (11.5-14.5); RBC Morphology Normal; Red Blood Cell (RBC) Count 4.06 mill/uL (4.70-6.10); White Blood Cell (WBC) Count 10.7 thou/uL (4.8-10.8)
[2017-11-17 10:54] LABS: ALT (SGPT) 16 U/L (8-55); AST (SGOT) 17 U/L (5-34); Albumin 3.1 g/dL (3.5-5.0); Alkaline Phosphatase 136 U/L (40-150); Anion Gap 12 mmol/L (10-20); BUN (Urea Nitrogen) 42 mg/dL (8.4-25.7); Bilirubin, Total 0.4 mg/dL (0.2-1.2); Calc. Creatinine Clearance 91 mL/min (70-130); Calcium 8.1 mg/dL (7.8-10.44); Carbon Dioxide 26 mmol/L (22-29); Chloride 102 mmol/L (98-107); Estimated GFR-MDRD 53; Globulin 2.7 g/dL (2.4-3.5); Glucose 254 mg/dL (70-105); Potassium 5.2 mmol/L (3.5-5.1); Protein, Total 5.8 g/dL (6.0-8.3); Sodium 135 mmol/L (136-145)
[2017-11-17] MEDS: Atorvastatin Calcium 10 MG TAB PO SCH (21:24)
[2017-11-17] MEDS: Lisinopril 5 MG TAB PO SCH (21:24)
[2017-11-17] MEDS: Temazepam 15 MG CAP PO PRN (21:24)
[2017-11-18] MEDS: HYDROcodone/Acetaminophen 10/325 mg Tablet PO PRN ×4 (03:20→20:40)
[2017-11-18] MEDS: Pregabalin 50 MG CAP PO SCH ×3 (09:38→20:41)
[2017-11-18] MEDS: Famotidine 20 MG TAB PO SCH ×2 (09:38→20:42)
[2017-11-18] MEDS: Varenicline Tartrate 0.5 MG TAB PO SCH ×2 (09:38→20:40)
[2017-11-18] MEDS: Docusate 100 MG CAP PO SCH ×2 (09:39→20:46)
[2017-11-18] MEDS: Levemir Flexpen 100 UNITS/ML PEN SC SCH (09:39)
[2017-11-18] MEDS: Metoprolol Tartrate 25 MG TAB PO SCH ×2 (09:39→20:42)
[2017-11-18] MEDS: Furosemide 20 MG TAB PO SCH (09:39)
[2017-11-18] MEDS: Aspirin 325 MG TAB PO SCH ×2 (09:39→20:43)
--- NOTE | 2017-11-18 14:18 | PRG ---
DATE OF SERVICE: 11/18/2017 DATE OF ADMISSION: 11/06/2017 HISTORY OF PRESENT ILLNESS: Mr. Paige is a well-developed, well-nourished, very pleasant, slightly obese 57-year-old white male that had a total knee done by Dr. Meza at [facility]. Postop eratively, he did fairly well, but had significant pain and he lived by himself. He was therefore tr ansferred to [facility] for physical therapy and occupational therapy. SUBJECTIVE: The patient states he feels a little bit better this morning. His watery diarrhea and n ausea are much improved. He just feels a kind of worn out today. He did walk about 2 rounds, but st ated that it completely exhausted him. Otherwise, he states he is being gentle on his stomach with e ating bland things today. PHYSICAL EXAMINATION: VITAL SIGNS: Today reveal blood pressure last night 120/75, this morning 170/81, pulse 59-74, respir ations 16-18, O2 sat 97%-98%, T-max 97.5. LABORATORY DATA: Yesterday revealed white count 10,700 with hemoglobin 12.0, hematocrit 36.7, and pl atelet count 333,000. Electrolytes reveal sodium 135, potassium 5.2, chloride 102, carbon dioxide 26 with BUN 42, creatinin e 1.38, which is slightly elevated from was 1.16. He is encouraged to drink lots of liquids today. PHYSICAL EXAMINATION: GENERAL: This is a well-developed, well-nourished, slightly obese white male in no apparent distress at this time. HEENT: Reveals normocephalic, nontraumatic cranium. Pupils are equally round and reactive. Extraoc ular movements intact. Nose and throat are slightly dry. NECK: Supple, without masses, nodes or bruits. CHEST: Clear to auscultation. No rales, rhonchi or wheezes are heard. HEART: Reveals a regular rate and rhythm without murmurs, gallops or rubs. ABDOMEN: Soft, nontender, without organomegaly, normal bowel sounds are noted. No rebound or guardi ng is noted. : Deferred. EXTREMITIES: Reveal no clubbing, cyanosis or edema. Right knee continues to look well, not red and not draining. Much less swelling. IMPRESSION: 1. New onset diarrhea, much improved. 2. Diabetes, stable. 3. Coronary artery disease. 4. Peripheral vascular disease. 5. Stomach virus, much improved. 6. Peripheral neuropathy. 7. Bilateral amputation of both great toes. 8. Total knee done by Dr. Meza at [facility] recently. 9. Hypertension. 10. Generalized weakness. PLAN: 1. Encourage the patient to eat bland things in the next couple of days and gradually increase his l iquids and diet. 2. Laboratories actually pretty good. 3. Campylobacter stool samples are pending. 4. Patient has not had any more diarrhea. 5. Follow the patient's blood pressure closely. 6. Stress ulcer prophylaxis. 7. Decubitus precautions. 8. Deep venous thrombosis prophylaxis. 9. Continue physical therapy and occupational therapy.
[2017-11-18] MEDS: Atorvastatin Calcium 10 MG TAB PO SCH (20:42)
[2017-11-18] MEDS: Lisinopril 5 MG TAB PO SCH (20:42)
[2017-11-19] MEDS: HYDROcodone/Acetaminophen 10/325 mg Tablet PO PRN ×5 (03:16→21:21)
[2017-11-19] MEDS: Levemir Flexpen 100 UNITS/ML PEN SC SCH (09:16)
[2017-11-19] MEDS: Varenicline Tartrate 0.5 MG TAB PO SCH ×2 (09:17→21:19)
[2017-11-19] MEDS: Pregabalin 50 MG CAP PO SCH ×3 (09:17→21:20)
[2017-11-19] MEDS: Furosemide 20 MG TAB PO SCH (09:18)
[2017-11-19] MEDS: Aspirin 325 MG TAB PO SCH ×2 (09:18→21:20)
[2017-11-19] MEDS: Docusate 100 MG CAP PO SCH ×2 (09:18→21:26)
[2017-11-19] MEDS: Famotidine 20 MG TAB PO SCH ×2 (09:18→21:20)
[2017-11-19] MEDS: Metoprolol Tartrate 25 MG TAB PO SCH ×2 (09:18→21:20)
[2017-11-19] MEDS: Lisinopril 5 MG TAB PO SCH (21:19)
[2017-11-19] MEDS: Temazepam 15 MG CAP PO PRN (21:20)
[2017-11-19] MEDS: Atorvastatin Calcium 10 MG TAB PO SCH (21:20)
[2017-11-20] MEDS: HYDROcodone/Acetaminophen 10/325 mg Tablet PO PRN ×5 (03:53→22:02)
[2017-11-20] MEDS: Levemir Flexpen 100 UNITS/ML PEN SC SCH (09:00)
[2017-11-20] MEDS: Pregabalin 50 MG CAP PO SCH ×3 (09:02→22:04)
[2017-11-20] MEDS: Aspirin 325 MG TAB PO SCH ×2 (09:03→22:02)
[2017-11-20] MEDS: Famotidine 20 MG TAB PO SCH ×2 (09:03→22:05)
[2017-11-20] MEDS: Varenicline Tartrate 0.5 MG TAB PO SCH ×2 (09:03→22:05)
[2017-11-20] MEDS: Furosemide 20 MG TAB PO SCH (09:03)
[2017-11-20] MEDS: Metoprolol Tartrate 25 MG TAB PO SCH ×2 (09:03→22:06)
[2017-11-20] MEDS: Docusate 100 MG CAP PO SCH ×2 (09:04→22:06)
--- NOTE | 2017-11-20 16:30 | PRG ---
DATE OF SERVICE: 11/20/2017 Mr. Paige is a well-developed, well-nourished, pleasant, slightly obese 57-year-old white male. He had a total knee done by Dr. Meza at [facility]. Postoperatively, he was transferred here for physical therapy and occupational therapy. SUBJECTIVE: The patient states he feels still nauseous and is not able to do as much as he was, but he feels somewhat better. PHYSICAL EXAMINATION: VITAL SIGNS: Blood pressure 163/73, pulse 62, respirations 16, O2 sat 98%, temperature 96.0. PHYSICAL EXAMINATION: GENERAL: This is a well-developed, well-nourished, very pleasant white male in no apparent distress at this time. HEENT: Reveals normocephalic, nontraumatic cranium. Pupils are equally round and reactive. Extraoc ular movements are intact. Nose and throat are slightly dry. NECK: Supple, without masses, nodes or bruits. CHEST: Clear to auscultation. No rales, rhonchi or wheezes are heard. HEART: Reveals a regular rate and rhythm without murmurs, gallops or rubs. ABDOMEN: Soft, nontender. Bowel sounds are slightly hyperactive this morning. No rebound or guardi ng is noted. GENITOURINARY: Deferred. EXTREMITIES: Reveal no clubbing, cyanosis or edema. The patient's knee is still much less swollen a nd has been not draining out red. IMPRESSION: 1. New onset diarrhea, much improved. 2. Viral gastroenteritis. 3. Diabetes. 4. Coronary artery disease. 5. Peripheral vascular disease. 6. Peripheral neuropathy. 7. Bilateral amputation of both great toes. 8. Total knee done by Dr. Meza at [facility]. 9. Hypertension. 10. Generalized weakness. PLAN: 1. The patient will continue to eat bland things and then slowly progress her diet. 2. The patient has not had any more diarrhea. 3. Follow the patient's blood pressure closely. 4. Stress ulcer prophylaxis. 5. Decubitus precautions. 6. DVT prophylaxis. 7. Continue PT and OT. 8. Discharge most likely next week.
--- NOTE | 2017-11-20 20:04 | PRG ---
DATE OF ADMISSION: 11/06/2017 DATE OF SERVICE: 11/20/2017 HISTORY OF PRESENT ILLNESS: Mr. Paige is a very pleasant 57-year-old white male. He had a total kn ee done by Dr. Meza at [facility]. Postoperatively, he was transferred here for physical therapy to increase his strength and stamina. He has no one to help him at home. SUBJECTIVE: The patient states he feels much better this afternoon. His stomach does not bother him . He is still kind of being careful with what he eats. He has had no more diarrhea or cramps. PHYSICAL EXAMINATION: VITAL SIGNS: Blood pressure this morning is 156/72, pulse 59, respirations 20, O2 sat 100%, T-max 95 .6. GENERAL: This is a well-developed, well-nourished, very pleasant white male in no apparent distress at this time. HEENT: Reveals normocephalic, nontraumatic cranium. Pupils are equally round and reactive. Extraoc ular movements intact. Nose and throat are slightly dry. NECK: Supple, without masses, nodes or bruits. LUNGS: Chest is clear to auscultation. No cough is noted. No rales, no rhonchi, no wheezes are hea rd. HEART: Reveals a regular rate and rhythm. ABDOMEN: Soft, nontender, no organomegaly. His bowel sounds are back to normal. No rebound or guar ding is noted. GENITOURINARY: Deferred. EXTREMITIES: Reveal no clubbing, cyanosis or edema. Right knee is doing very well. IMPRESSION: 1. Viral gastroenteritis, much improved, most likely resolved. 2. Diabetes, stable. 3. Coronary artery disease. 4. Peripheral vascular disease. 5. Stomach virus, improved. 6. Peripheral neuropathy. 7. Bilateral amputation of both great toes. 8. Total knee by Dr. Meza at [place] at [facility]. 9. Hypertension. 10. Generalized weakness. PLAN: 1. Continue to gradually increase from bland to regular diet. 2. Follow the patient's blood pressure. 3. Stress ulcer prophylaxis. 4. Decubitus precautions. 5. Deep venous thrombosis prophylaxis. 6. Continue physical therapy and occupational therapy.
[2017-11-20] MEDS: Lisinopril 5 MG TAB PO SCH (22:04)
[2017-11-20] MEDS: Atorvastatin Calcium 10 MG TAB PO SCH (22:06)
[2017-11-20] MEDS: Temazepam 15 MG CAP PO PRN (22:06)
[2017-11-21] MEDS: HYDROcodone/Acetaminophen 10/325 mg Tablet PO PRN ×5 (06:01→22:49)
[2017-11-21] MEDS: Aspirin 325 MG TAB PO SCH ×2 (08:33→21:29)
[2017-11-21] MEDS: Docusate 100 MG CAP PO SCH ×3 (08:33→21:38)
[2017-11-21] MEDS: Furosemide 20 MG TAB PO SCH (08:34)
[2017-11-21] MEDS: Famotidine 20 MG TAB PO SCH ×2 (08:34→21:34)
[2017-11-21] MEDS: Levemir Flexpen 100 UNITS/ML PEN SC SCH (08:34)
[2017-11-21] MEDS: Pregabalin 50 MG CAP PO SCH ×3 (08:36→21:31)
[2017-11-21] MEDS: Metoprolol Tartrate 25 MG TAB PO SCH ×2 (08:36→21:29)
[2017-11-21] MEDS: Varenicline Tartrate 0.5 MG TAB PO SCH ×2 (08:37→21:34)
--- NOTE | 2017-11-21 15:19 | PRG ---
DATE OF SERVICE: 11/21/2017 SUBJECTIVE: Mr. Paige is doing well. Denies any complaints, resting comfortably, tolerating his th erapy. OBJECTIVE: VITAL SIGNS: He is afebrile, heart rate 60, respirations 16, oxygen saturation 97%, blood pressure 1 56/72. CARDIOVASCULAR SYSTEM: S1, S2 plus. RESPIRATORY SYSTEM: Normal vesicular breath sounds. ABDOMEN: Soft, nontender, bowel sounds heard in all quadrants. EXTREMITIES: Without cyanosis or clubbing. Right knee incision is healthy and healing well. IMPRESSION: 1. Degenerative joint disease status post right total knee replacement. 2. Diabetes mellitus type 2. 3. Coronary artery disease without angina. 4. Peripheral vascular disease. 5. Peripheral neuropathy. 6. Hypertension, improving control. PLAN: 1. Continue current medications. 2. A 1800 calorie heart healthy diet. 3. DVT and stress ulcer prophylaxis. 4. Decubitus precautions. 5. Incision care. 6. Physical therapy. 7. Routine laboratory values. 8. No family at bedside. 9. Discussed with patient in detail and all questions answered.
[2017-11-21] MEDS: Lisinopril 5 MG TAB PO SCH (21:34)
[2017-11-21] MEDS: Atorvastatin Calcium 10 MG TAB PO SCH (21:35)
[2017-11-21] MEDS: Temazepam 15 MG CAP PO PRN (21:35)
[2017-11-22] MEDS: HYDROcodone/Acetaminophen 10/325 mg Tablet PO PRN ×5 (04:55→22:27)
[2017-11-22] MEDS: Docusate 100 MG CAP PO SCH ×2 (08:43→22:27)
[2017-11-22] MEDS: Aspirin 325 MG TAB PO SCH ×2 (08:43→22:25)
[2017-11-22] MEDS: Furosemide 20 MG TAB PO SCH (08:44)
[2017-11-22] MEDS: Famotidine 20 MG TAB PO SCH ×2 (08:44→22:27)
[2017-11-22] MEDS: Levemir Flexpen 100 UNITS/ML PEN SC SCH (08:44)
[2017-11-22] MEDS: Pregabalin 50 MG CAP PO SCH ×3 (08:46→22:26)
[2017-11-22] MEDS: Metoprolol Tartrate 25 MG TAB PO SCH ×2 (08:46→22:26)
[2017-11-22] MEDS: Varenicline Tartrate 0.5 MG TAB PO SCH ×2 (09:32→22:25)
--- NOTE | 2017-11-22 11:27 | PRG ---
DATE OF SERVICE: 11/22/2017 SUBJECTIVE: Mr. Paige is doing well. Denies any complaints, resting comfortably, tolerating his th erapy. Discussed with nursing and no concerns. OBJECTIVE: VITAL SIGNS: He is afebrile, heart rate 64, respirations 16, oxygen saturation 97%, and blood pressu re 121/55. CARDIOVASCULAR SYSTEM: S1, S2 plus. RESPIRATORY SYSTEM: Normal vesicular breath sounds. ABDOMEN: Soft, nontender, bowel sounds heard in all quadrants. EXTREMITIES: Without cyanosis or clubbing. Right knee incision is healthy. LABORATORY VALUES: Blood sugars are 208, 210, 207 and 170. IMPRESSION: 1. Degenerative joint disease status post right total knee replacement. 2. Diabetes mellitus type 2, reasonable control. 3. Coronary artery disease without angina. 4. Peripheral vascular disease. 5. Peripheral neuropathy. 6. Hypertension, much improved. PLAN: 1. Continue current medications. 2. 1800 calorie heart healthy ADA diet. 3. Accu-Cheks with sliding scale coverage. 4. DVT and stress ulcer prophylaxis. 5. Incision care. 6. Physical therapy. 7. Routine laboratory values. 8. Dr. Nisah Brownlee will be back tonight to resume care.
[2017-11-22] MEDS: Lisinopril 5 MG TAB PO SCH (22:25)
[2017-11-22] MEDS: Atorvastatin Calcium 10 MG TAB PO SCH (22:27)
[2017-11-22] MEDS: Temazepam 15 MG CAP PO PRN (22:27)
[2017-11-23] MEDS: HYDROcodone/Acetaminophen 10/325 mg Tablet PO PRN ×4 (03:33→21:31)
[2017-11-23] MEDS: Famotidine 20 MG TAB PO SCH ×2 (09:00→21:30)
[2017-11-23] MEDS: Aspirin 325 MG TAB PO SCH ×2 (09:00→21:29)
[2017-11-23] MEDS: Pregabalin 50 MG CAP PO SCH ×3 (09:00→21:30)
[2017-11-23] MEDS: Varenicline Tartrate 0.5 MG TAB PO SCH ×2 (09:00→21:31)
[2017-11-23] MEDS: Furosemide 20 MG TAB PO SCH (09:00)
[2017-11-23] MEDS: Metoprolol Tartrate 25 MG TAB PO SCH ×2 (09:01→21:30)
[2017-11-23] MEDS: Levemir Flexpen 100 UNITS/ML PEN SC SCH (09:01)
[2017-11-23] MEDS: Docusate 100 MG CAP PO SCH ×2 (09:02→21:29)
--- NOTE | 2017-11-23 21:12 | PRG ---
DATE OF SERVICE: 11/23/2017 DATE OF ADMISSION: 11/06/2017 The patient is a 57-year-old white male who had a total knee done by Dr. Meza at [facility]. Postoperatively, he was transferred to [facility] for physical therapy a nd occupational therapy to increase his strength and stamina. SUBJECTIVE: The patient states he is recovering from his viral gastroenteritis and not had any more diarrhea. States he is a little bit weaker, but he is doing much better today. PHYSICAL EXAMINATION: VITAL SIGNS: Reveal blood pressure is 141/69, pulse 62, respirations 19, O2 sat 93% on room air, tem perature 97.9. GENERAL: This is a well-developed, well-nourished, very pleasant, slightly obese white male in no ap parent distress at this time. HEENT: Reveals normocephalic, nontraumatic cranium. Pupils are equally round and reactive. Extraoc ular movements intact. Nose and throat are slightly dry. NECK: Supple, without masses, nodes, or bruits. CHEST: Clear to auscultation. No rales, rhonchi, or wheezes are heard. CARDIOVASCULAR: Reveals a regular rate and rhythm without murmurs, gallops, or rubs. ABDOMEN: Soft, nontender, without organomegaly. Normal bowel sounds are noted. No rebound or guard ing is noted. EXAM: Deferred. EXTREMITIES: Reveal no clubbing, cyanosis, or edema. Right knee seems to be doing much better. LABORATORY DATA: Accu-Cheks revealed fasting this morning 143, before lunch 157. IMPRESSION: 1. Viral gastroenteritis, much improved, most likely resolved. 2. Diabetes, stable. 3. Coronary artery disease. 4. Peripheral vascular disease. 5. Stomach virus, improved. 6. Peripheral neuropathy. 7. Bilateral amputation of both great toes. 8. Total knee by Dr. Meza at [facility]. 9. Hypertension. 10. Generalized weakness. PLAN: 1. Patient is actually progressing well, most likely will be discharged Thursday or . 2. Continue to monitor the patient's blood pressure. 3. Stress ulcer prophylaxis. 4. Decubitus precautions. 5. Deep venous thrombosis prophylaxis. 6. Continue physical therapy and occupational therapy. 7. Home health to visit the patient.
[2017-11-23] MEDS: Atorvastatin Calcium 10 MG TAB PO SCH (21:29)
[2017-11-23] MEDS: Lisinopril 5 MG TAB PO SCH (21:30)
[2017-11-23] MEDS: Milk Of Magnesia 30 ML UDCUP PO PRN (22:15)
[2017-11-24] MEDS: HYDROcodone/Acetaminophen 10/325 mg Tablet PO PRN ×6 (01:55→22:34)
[2017-11-24] MEDS: Levemir Flexpen 100 UNITS/ML PEN SC SCH (08:59)
[2017-11-24] MEDS: Furosemide 20 MG TAB PO SCH (09:00)
[2017-11-24] MEDS: Famotidine 20 MG TAB PO SCH ×2 (09:00→21:01)
[2017-11-24] MEDS: Metoprolol Tartrate 25 MG TAB PO SCH ×2 (09:00→21:01)
[2017-11-24] MEDS: Varenicline Tartrate 0.5 MG TAB PO SCH ×2 (09:00→21:02)
[2017-11-24] MEDS: Aspirin 325 MG TAB PO SCH ×2 (09:01→21:00)
[2017-11-24] MEDS: Docusate 100 MG CAP PO SCH ×2 (09:01→21:01)
[2017-11-24] MEDS: Pregabalin 50 MG CAP PO SCH ×3 (09:01→21:01)
[2017-11-24] MEDS: Atorvastatin Calcium 10 MG TAB PO SCH (21:00)
[2017-11-24] MEDS: Lisinopril 5 MG TAB PO SCH (21:01)
--- NOTE | 2017-11-24 21:27 | PRG ---
DATE OF PROGRESS NOTE: 11/24/2017 DATE OF ADMISSION: 11/06/2017 HISTORY OF PRESENT ILLNESS: Mr. Paige is a very pleasant 57-year-old white male that was admitted t [facility] electively for a total right knee. This was done by Dr. Meza, the p atient was eventually transferred to [facility] for physical therapy and occupational therapy to increase his strength and stamina. SUBJECTIVE: The patient lives by himself and so therefore, he was transferred to [facility] nd actually he is doing much better. He is to be discharged Thursday or , but unfortunately Dr. Meza's office called for evaluation tomorrow, so most likely his evaluation goes very well leny orrow. He will be discharged on . Patient has no complaints. PHYSICAL EXAMINATION: VITAL SIGNS: Reveal blood pressure slightly elevated this morning 160/70, pulse 62 to 67, respiratio ns 18, O2 saturation 98%. T-max 97.7. GENERAL: This is a well-developed, well-nourished, pleasant white male in no apparent distress. HEENT: Reveals normocephalic, nontraumatic cranium. Pupils are equally round and reactive. Extraoc ular movements are intact. Nose and throat are slightly dry, but clear. NECK: Supple, without masses, nodes, or bruits. LUNGS: Chest is clear to auscultation. No rales, rhonchi, or wheezes are heard. CARDIOVASCULAR: Reveals a regular rate and rhythm without murmurs, gallops, or rubs. ABDOMEN: Soft, nontender, without organomegaly. Slightly obese. No rebound or guarding is noted. GENITOURINARY: Deferred. EXTREMITIES: Reveal no clubbing, cyanosis, or edema. Patient's right knee has much less swelling se ems to be doing much better. IMPRESSION: 1. Diabetes, stable. 2. Coronary artery disease. 3. Peripheral vascular disease. 4. Stomach virus, resolved. 5. Peripheral neuropathy. 6. Bilateral amputation of both great toes. 7. Total knee by Dr. Meza at [facility]. 8. Hypertension. 9. Generalized weakness. PLAN: 1. Patient will be seeing Dr. Meza tomorrow. 2. The patient is expected to be discharged on . 3. Continue to monitor the patient's blood pressure closely. 4. Stress ulcer prophylaxis. 5. Decubitus precautions. 6. Deep venous thrombosis prophylaxis. 7. Continue physical therapy and occupational therapy. 8. Home Health for the patient when he is discharged. 9. Expected discharge is .
[2017-11-25] MEDS: HYDROcodone/Acetaminophen 10/325 mg Tablet PO PRN ×4 (05:15→18:13)
[2017-11-25] MEDS: Docusate 100 MG CAP PO SCH ×2 (09:28→21:25)
[2017-11-25] MEDS: Aspirin 325 MG TAB PO SCH ×2 (09:28→21:25)
[2017-11-25] MEDS: Famotidine 20 MG TAB PO SCH ×2 (09:28→21:25)
[2017-11-25] MEDS: Furosemide 20 MG TAB PO SCH (09:28)
[2017-11-25] MEDS: Levemir Flexpen 100 UNITS/ML PEN SC SCH (09:29)
[2017-11-25] MEDS: Metoprolol Tartrate 25 MG TAB PO SCH ×2 (09:30→21:26)
[2017-11-25] MEDS: Pregabalin 50 MG CAP PO SCH ×3 (09:30→21:26)
[2017-11-25] MEDS: Varenicline Tartrate 0.5 MG TAB PO SCH ×2 (09:31→21:30)
[2017-11-25] MEDS: Milk Of Magnesia 30 ML UDCUP PO PRN (14:29)
[2017-11-25] MEDS: Atorvastatin Calcium 10 MG TAB PO SCH (21:25)
[2017-11-25] MEDS: Lisinopril 5 MG TAB PO SCH (21:26)
[2017-11-25] MEDS ORDERED: Temazepam 15 MG CAP PO SCH (21:30)
--- NOTE | 2017-11-26 06:00 | PRG ---
DATE OF SERVICE: 11/25/2017 HISTORY OF PRESENT ILLNESS: Mr. Paige is a very pleasant 57-year-old white male who had a total kne e done by Dr. Meza. The patient was eventually transferred to [facility] for physi penelope therapy, occupational therapy to increase his strength and stamina. The patient actually saw Dr. Meza again today, who states that he is doing well. He was cleared fo r discharge tomorrow. The patient states he is very upset because he has been taking Chantix and he thinks that makes him a gitated and have terrible nightmares and he cannot sleep at night. I suggest that we stop and he was wholeheartedly for that. He was trying to stop smoking completely. OBJECTIVE: VITAL SIGNS: This morning reveal blood pressure 130/61, pulse 57-62, respirations 20, O2 sat 96%, T- max 97.2. GENERAL: This is a well-developed, well-nourished, slightly obese white male in no apparent distress at this time. HEENT: Reveals normocephalic, nontraumatic cranium. Pupils are equal, round, and reactive. Extraoc ular movements are intact. Nose and throat are slightly dry. NECK: Supple, without masses, nodes, or bruits. CHEST: Clear to auscultation. No rales, rhonchi, or wheezes are heard. CARDIOVASCULAR: Reveals a regular rate and rhythm without murmurs, gallops, or rubs. ABDOMEN: Soft, nontender, without organomegaly, normal bowel sounds are noted. No rebound or guardi ng is noted. GENITOURINARY: Deferred. EXTREMITIES: Reveal no clubbing, cyanosis, or edema. His right knee is much improved. Much less sw elling. Accu-Cheks reveal fasting this morning 121, before lunch 152, before supper 208, before bedtime 165. IMPRESSION: 1. Diabetes, stable. 2. Coronary artery disease. 3. Peripheral vascular disease. 4. Stomach virus resolved. 5. Peripheral neuropathy, much improved. 6. Bilateral amputation of both great toes. 7. Total knee done by Dr. Meza at [facility]. 8. Hypertension. 9. Generalized weakness. PLAN: 1. The patient is doing well, most likely he will be discharged tomorrow. 2. Continue to monitor the patient's blood pressure. 3. Stop the patient's Chantix. 4. Continue decubitus precautions. 5. Deep venous thrombosis prophylaxis. 6. Continue PT and OT. 7. Home health for the patient when he is discharged. 8. Discharge tomorrow.
[2017-11-26 08:21] VITALS: BP 170/78; TEMP 97.2
[2017-11-26] MEDS: Famotidine 20 MG TAB PO SCH (08:46)
[2017-11-26] MEDS: Aspirin 325 MG TAB PO SCH (08:46)
[2017-11-26] MEDS: Docusate 100 MG CAP PO SCH (08:46)
[2017-11-26] MEDS: Furosemide 20 MG TAB PO SCH (08:46)
[2017-11-26] MEDS: Levemir Flexpen 100 UNITS/ML PEN SC SCH (08:47)
[2017-11-26] MEDS: Metoprolol Tartrate 25 MG TAB PO SCH (08:47)
[2017-11-26] MEDS: Pregabalin 50 MG CAP PO SCH (08:47)
[2017-11-26] MEDS: HYDROcodone/Acetaminophen 10/325 mg Tablet PO PRN (08:48)
--- NOTE | 2017-11-26 10:34 | DIS ---
DATE OF ADMISSION: 11/06/2017 DATE OF DISCHARGE: 11/26/2017 HOSPITAL COURSE: Mr. Paige is a very pleasant 57-year-old white male that was admitted to [facility] in [place] for total hip done by Dr. Meza. It was elected. He actually did fairly well, but lives by himself out in the [place] trailer and was unable to care for himself. He was admitted to swing bed at [facility] for physical therapy and occupation therapy and h as done very well. He has reached maximum medical benefit and is ready for discharge at this time. DISCHARGE MEDICATIONS: Include the following; 1. Aspirin 325 b.i.d. 2. Lipitor 10 daily. 3. Pepcid 20 b.i.d. 4. Lasix 20 every morning. 5. Levemir 48 units subcu each morning. 6. Lisinopril 5 mg at bedtime. 7. Lopressor 25 twice a day. 8. Lyrica 100 t.i.d. PHYSICAL EXAMINATION: GENERAL: This is a well-developed, well-nourished, slightly obese white male in no apparent distress at this time. HEENT: Reveals normocephalic, nontraumatic cranium. Pupils are equally round and reactive. Extraoc ular movements are intact. Nose and throat are slightly dry. NECK: Supple without masses, nodes or bruits. CHEST: Clear to auscultation. No rales, rhonchi or wheezes are heard. HEART: Reveals regular rate and rhythm without murmurs, gallops or rubs. ABDOMEN: Soft, nontender, without organomegaly, normal bowel sounds are noted. No rebound or guardi ng is noted. GENITOURINARY: Deferred. EXTREMITIES: Reveal no clubbing, cyanosis or edema. Right knee is much improved, much less swelling , and much better range of motion. IMPRESSION: 1. Diabetes, stable. 2. Coronary artery disease. 3. Peripheral vascular disease. 4. Stomach virus, resolved. 5. Peripheral neuropathy, stable. 6. Bilateral amputation of both great toes. 7. Total knee done by Dr. Meza, much improved. 8. Hypertension. 9. Generalized weakness. PLAN: 1. The patient doing well. He has reached maximum medical benefit and is ready for discharge today. 2. The patient will be discharged and he will continue to monitor his blood pressure and call me in a couple of weeks about that. 3. The patient's Chantix has been stopped since he is having some night tears with that. 4. Continue DVT prophylaxis. 5. Continue outpatient physical therapy and occupational therapy with home health. 6. Discharge this morning with home health. The patient will follow with home health. He is to fol low with me in 2-3 weeks.
== END 2017-11-26 10:47 | disposition home health service (06) | DRG 948 ==
LOC: NAV ACUTE 14:58
PROVIDERS: ADMIT Family Medicine; ATTEND Family Medicine
DX: R53.1 Weakness (principal); E11.42 Type 2 diabetes mellitus with diabetic polyneuropathy; E11.51 Type 2 diabetes mellitus with diabetic peripheral angiopathy without gangrene; I25.10 Atherosclerotic heart disease of native coronary artery without angina pectoris; Z96.651 Presence of right artificial knee joint; Z87.891 Personal history of nicotine dependence; Z95.810 Presence of automatic (implantable) cardiac defibrillator; Z95.1 Presence of aortocoronary bypass graft; Z79.82 Long term (current) use of aspirin; Z79.4 Long term (current) use of insulin; Z89.412 Acquired absence of left great toe; Z89.411 Acquired absence of right great toe; I10 Essential (primary) hypertension; A08.4 Viral intestinal infection, unspecified; E66.9 Obesity, unspecified; Z68.32 Body mass index [BMI] 32.0-32.9, adult; Z23 Encounter for immunization
CPT/HCPCS: 36415; 36416; 80048; 80053; 85025; J1815; Q0162

== ENCOUNTER 2018-04-23 11:22 | Emergency (ER) | payer MEDICARE ==
--- NOTE | 2018-04-23 12:12 | RAD ---
PA AND LATERAL CHEST: Date: 04/23/18 HISTORY: Cough, coronary artery disease, hypertension. COMPARISON: 10/27/17. FINDINGS: Single lead left subclavian AICD device remains in place. Postsurgical changes related to CABG are ag ain noted. The lowermost sternal wire is fractured. Cardiac silhouette and pulmonary vasculature are within normal limits. The lungs are clear. Right lateral costophrenic angle is excluded from view. No other interval change from prior exam. IMPRESSION: 1. No acute cardiopulmonary process. 2. Right lateral costophrenic angle is excluded from view. POS: [facility]
== END 2018-04-23 12:50 | disposition home or self-care (01) ==
LOC: NAV ERS 11:22
DX: J30.1 Allergic rhinitis due to pollen (principal); I25.2 Old myocardial infarction; E11.40 Type 2 diabetes mellitus with diabetic neuropathy, unspecified; I10 Essential (primary) hypertension; Z87.891 Personal history of nicotine dependence; Z79.4 Long term (current) use of insulin; Z79.82 Long term (current) use of aspirin; Z79.899 Other long term (current) drug therapy
CPT/HCPCS: 71046; 87081; 87430; 87804; 93005

== ENCOUNTER 2018-09-10 00:01 | Emergency (ER) | payer MEDICARE ==
[2018-09-10 01:01] LABS: Band 4 % (5-11); Eosinophils 1 % (0-10); Hemoglobin 13.4 g/dL (14.0-18.0); Lymphocytes 12 % (21-51); MDiff Complete? YES; Mean Corpuscular Hemoglobin 29.1 pg (27.0-31.0); Mean Corpuscular Volume 90.9 fL (78.0-98.0); Mean Platelet Volume 9.4 fL (7.4-10.4); Monocytes 4 % (0-10); Neutrophil 79 % (42-75); PLT Morphology Comment Appears Adequate; Platelet Count 267 thou/uL (130-400); RBC Distribution Width 11.9 % (11.5-14.5); RBC Morphology Normal; Red Blood Cell (RBC) Count 4.62 mill/uL (4.70-6.10); White Blood Cell (WBC) Count 14.4 thou/uL (4.8-10.8)
[2018-09-10 01:04] LABS: ALT (SGPT) 14 U/L (8-55); AST (SGOT) 13 U/L (5-34); Albumin 3.6 g/dL (3.5-5.0); Alkaline Phosphatase 173 U/L (40-150); Anion Gap 16 mmol/L (10-20); BUN (Urea Nitrogen) 39 mg/dL (8.4-25.7); Bilirubin, Total 0.4 mg/dL (0.2-1.2); Calc. Creatinine Clearance 0 mL/min (70-130); Calcium 9.7 mg/dL (7.8-10.44); Carbon Dioxide 26 mmol/L (22-29); Chloride 90 mmol/L (98-107); Estimated GFR-MDRD 30; Globulin 3.7 g/dL (2.4-3.5); Potassium 4.1 mmol/L (3.5-5.1); Protein, Total 7.3 g/dL (6.0-8.3); Sodium 128 mmol/L (136-145)
[2018-09-10 01:17] LABS: Glucose 627 mg/dL (70-105)
[2018-09-10] MEDS ORDERED: Sodium Chloride 0.9% 1,000 ML ONE (01:23)
[2018-09-10] MEDS ORDERED: Piperacillin/Tazobactam 2.25 GM in Sodium Chloride 0.9% 100 ML IVPB SCH (01:45)
[2018-09-10] MEDS ORDERED: Sodium Chloride 0.9% 250 ML 250 ML ONE (02:08)
[2018-09-10] MEDS ORDERED: Clindamycin/D5W 900 mg/50 ml Premix Bag ONE (02:11)
[2018-09-10] MEDS ORDERED: Ondansetron PF 4 MG/2 ML Vial ONE (02:20)
[2018-09-10] MEDS ORDERED: Fentanyl 100 MCG/2 ML VIAL ONE (02:20)
--- NOTE | 2018-09-10 08:10 | RAD ---
TWO VIEWS CHEST: Comparison: 04-23-18 History: Chest pain. FINDINGS: Two views of the chest shows a normal sized cardiomediastinal silhouette. Patient is status post ster notomy. The pacemaker is unchanged in position. There is no evidence of consolidation, mass, or pleur al effusion. IMPRESSION: No evidence of acute cardiopulmonary disease. POS: [facility]
== END 2018-09-10 02:54 | disposition short-term general hospital (02) ==
LOC: NAV ERS 00:01
DX: T81.41XA Infection following a procedure, superficial incisional surgical site, initial encounter (principal); T81.44XA Sepsis following a procedure, initial encounter; N17.9 Acute kidney failure, unspecified; N18.9 Chronic kidney disease, unspecified; E11.65 Type 2 diabetes mellitus with hyperglycemia; E87.2 Acidosis; E11.40 Type 2 diabetes mellitus with diabetic neuropathy, unspecified; D72.828 Other elevated white blood cell count; E78.5 Hyperlipidemia, unspecified; I25.2 Old myocardial infarction; Z87.891 Personal history of nicotine dependence; Z79.899 Other long term (current) drug therapy
CPT/HCPCS: 36415; 71046; 80053; 83605; 85025; 87040; 87070; 87077; 87186; 87205; 93005; 96361; 96365; 96375; J2405; J2543; J3010; J3370; J3490; J7050

== ENCOUNTER 2018-12-18 02:24 | Emergency (ER) | payer MEDICARE | END 2018-12-18 03:05 | disposition home or self-care (01) | LOC: NAV ERS 02:24 | DX: I10 Essential (primary) hypertension (principal); F43.9 Reaction to severe stress, unspecified; I25.10 Atherosclerotic heart disease of native coronary artery without angina pectoris; I25.2 Old myocardial infarction; E11.40 Type 2 diabetes mellitus with diabetic neuropathy, unspecified; E78.5 Hyperlipidemia, unspecified; Z87.891 Personal history of nicotine dependence; Z79.899 Other long term (current) drug therapy; Z79.82 Long term (current) use of aspirin | CPT/HCPCS: 99283 ==

== ENCOUNTER 2018-12-27 21:01 | Emergency (ER) | payer MEDICARE ==
[2018-12-27 21:39] LABS: #Basophils 0.1 thou/uL (0.0-0.2); #Eosinphils 0.1 thou/uL (0.0-0.7); #Lymphocytes 1.2 thou/uL (1.20-3.40); #Monocytes 0.4 thou/uL (0.11-0.59); #Neutrophils 8.1 thou/uL (1.40-6.50); %Eosinophils 1.3 % (0.0-10.0); %Lymphocytes 12.2 % (21.0-51.0); %Monocytes 4.4 % (0.0-10.0); %Neutrophils 81.2 % (42.0-75.0); Hemoglobin 12.3 g/dL (14.0-18.0); Mean Corpuscular HGB CONC 31.7 g/dL (32.0-36.0); Mean Corpuscular Hemoglobin 28.4 pg (27.0-31.0); Mean Corpuscular Volume 89.5 fL (78.0-98.0); Mean Platelet Volume 10.9 fL (7.4-10.4); Platelet Count 196 thou/uL (130-400); Red Blood Cell (RBC) Count 4.34 mill/uL (4.70-6.10)
[2018-12-27 21:52] LABS: ALT (SGPT) 21 U/L (8-55); AST (SGOT) 19 U/L (5-34); Albumin 3.6 g/dL (3.5-5.0); Alkaline Phosphatase 173 U/L (40-150); Anion Gap 15 mmol/L (10-20); BUN (Urea Nitrogen) 25 mg/dL (8.4-25.7); Bilirubin, Total 0.5 mg/dL (0.2-1.2); Calc. Creatinine Clearance 0 mL/min (70-130); Calcium 9.3 mg/dL (7.8-10.44); Carbon Dioxide 25 mmol/L (22-29); Chloride 106 mmol/L (98-107); Estimated GFR-MDRD 47; Globulin 3.2 g/dL (2.4-3.5); Glucose 262 mg/dL (70-105); Potassium 4.5 mmol/L (3.5-5.1); Protein, Total 6.8 g/dL (6.0-8.3); Sodium 141 mmol/L (136-145)
== END 2018-12-27 22:03 | disposition home or self-care (01) ==
LOC: NAV ERS 21:01
DX: I12.9 Hypertensive chronic kidney disease with stage 1 through stage 4 chronic kidney disease, or unspecified chronic kidney disease (principal); N18.9 Chronic kidney disease, unspecified; E11.40 Type 2 diabetes mellitus with diabetic neuropathy, unspecified; E78.5 Hyperlipidemia, unspecified; I25.10 Atherosclerotic heart disease of native coronary artery without angina pectoris; I25.2 Old myocardial infarction; Z87.891 Personal history of nicotine dependence; Z79.82 Long term (current) use of aspirin; Z79.4 Long term (current) use of insulin; Z79.899 Other long term (current) drug therapy
CPT/HCPCS: 80053; 83880; 84484; 85025; 93005

== ENCOUNTER 2018-12-28 22:30 | Emergency (ER) | payer MEDICARE ==
[2018-12-28 23:28] LABS: #Basophils 0.1 thou/uL (0.0-0.2); #Eosinphils 0.1 thou/uL (0.0-0.7); #Lymphocytes 1.2 thou/uL (1.20-3.40); #Monocytes 0.5 thou/uL (0.11-0.59); #Neutrophils 7.2 thou/uL (1.40-6.50); %Basophils 0.6 % (0.0-1.0); %Eosinophils 1.2 % (0.0-10.0); %Lymphocytes 13.2 % (21.0-51.0); Hemoglobin 11.9 g/dL (14.0-18.0); Mean Corpuscular HGB CONC 32.1 g/dL (32.0-36.0); Mean Corpuscular Hemoglobin 28.7 pg (27.0-31.0); Mean Corpuscular Volume 89.4 fL (78.0-98.0); Mean Platelet Volume 11.6 fL (7.4-10.4); Platelet Count 176 thou/uL (130-400); RBC Distribution Width 11.7 % (11.5-14.5); Red Blood Cell (RBC) Count 4.15 mill/uL (4.70-6.10)
== END 2018-12-28 23:49 | disposition home or self-care (01) ==
LOC: NAV ERS 22:30
DX: R53.81 Other malaise (principal); I25.10 Atherosclerotic heart disease of native coronary artery without angina pectoris; I25.2 Old myocardial infarction; E11.40 Type 2 diabetes mellitus with diabetic neuropathy, unspecified; E78.5 Hyperlipidemia, unspecified; I10 Essential (primary) hypertension; Z87.891 Personal history of nicotine dependence; Z79.899 Other long term (current) drug therapy; Z79.82 Long term (current) use of aspirin; Z79.4 Long term (current) use of insulin
CPT/HCPCS: 83605; 85025; 87040; 99283

== ENCOUNTER 2019-08-19 11:35 | Emergency (ER) | payer MEDICARE ==
[2019-08-19] MEDS ORDERED: Lidocaine 1% (PF) 30 ML VIAL ONE (11:47)
[2019-08-19] MEDS ORDERED: Clindamycin 150 MG CAP ONE (12:07)
== END 2019-08-19 12:18 | disposition home or self-care (01) ==
LOC: NAV ERS 11:35
DX: L02.811 Cutaneous abscess of head [any part, except face] (principal); I25.10 Atherosclerotic heart disease of native coronary artery without angina pectoris; I25.2 Old myocardial infarction; E11.40 Type 2 diabetes mellitus with diabetic neuropathy, unspecified; E78.5 Hyperlipidemia, unspecified; E78.00 Pure hypercholesterolemia, unspecified; I10 Essential (primary) hypertension; Z87.891 Personal history of nicotine dependence; Z79.82 Long term (current) use of aspirin; Z79.899 Other long term (current) drug therapy; Z79.4 Long term (current) use of insulin
CPT/HCPCS: 10060; 87070; 87077; 87186; 87205; J2001

== ENCOUNTER 2020-11-20 20:16 | Emergency (ER) | payer MEDICARE ==
--- NOTE | 2020-11-20 21:09 | RAD ---
Exam: Chest one view HISTORY:Fever Comparison: 09/10/2018 FINDINGS: Cardiac silhouette:Stable cardiomegaly, single lead left-sided defibrillator and sternotomy wires Aorta: Unremarkable Pulmonary vessels: Normal Costophrenic angles: Clear LUNGS: No masses or consolidation. Pneumothorax: None Osseous abnormalities: None IMPRESSION: No acute cardiopulmonary process.
[2020-11-20 21:22] LABS: #Lymphocytes 0.2 thou/uL (1.20-3.40); #Monocytes 0.2 thou/uL (0.11-0.59); #Neutrophils 4.1 thou/uL (1.40-6.50); %Lymphocytes 3.3 % (21.0-51.0); %Monocytes 4.3 % (0.0-10.0); %Neutrophils 91.3 % (42.0-75.0); Hemoglobin 16.5 g/dL (14.0-18.0); Mean Corpuscular HGB CONC 32.2 g/dL (32.0-36.0); Mean Corpuscular Hemoglobin 29.5 pg (27.0-31.0); Mean Corpuscular Volume 91.5 fL (78.0-98.0); Mean Platelet Volume 8.9 fL (7.4-10.4); Platelet Count 121 thou/uL (130-400); RBC Distribution Width 12.7 % (11.5-14.5); Red Blood Cell (RBC) Count 5.58 mill/uL (4.70-6.10); White Blood Cell (WBC) Count 4.5 thou/uL (4.8-10.8)
[2020-11-20 21:39] LABS: ALT (SGPT) 47 U/L (8-55); AST (SGOT) 58 U/L (5-34); Albumin 3.3 g/dL (3.4-4.8); Alkaline Phosphatase 142 U/L (40-110); Anion Gap 16 mmol/L (10-20); BUN (Urea Nitrogen) 31 mg/dL (8.4-25.7); Bilirubin, Total 0.7 mg/dL (0.2-1.2); Calc. Creatinine Clearance 0 mL/min (70-130); Calcium 8.4 mg/dL (7.8-10.44); Carbon Dioxide 24 mmol/L (23-31); Chloride 94 mmol/L (98-107); Glucose 379 mg/dL (80-115); Potassium 4.3 mmol/L (3.5-5.1); Protein, Total 6.3 g/dL (5.8-8.1); Sodium 130 mmol/L (136-145)
[2020-11-20 23:40] LABS: Bilirubin Small (Negative); Blood, Urine Moderate (Negative); Clarity Clear (Clear); Glucose, Urine (Dipstick) >=1000 mg/dL (Negative); Ketone, Urine Negative (Negative); Leukocyte Negative (Negative); Nitrite Negative (Negative); Protein, Urine (Dipstick) > or equal to 300 mg/dL (Neg-Trace); Specific Gravity, Urine 1.032 (1.002-1.036); Urobilinogen 0.2 mg/dL (Less than 2)
[2020-11-20 23:41] LABS: Bacteria/HPF None Seen HPF (None Seen); Squamous Epithelial 0-3 HPF (0-3); WBC/HPF None Seen HPF (0-3)
[2020-11-21 17:06] LABS: SARS-CoV-2 MS2 Positive; SARS-CoV-2 N Gene Negative; SARS-CoV-2 S Gene Negative; SARS-CoV-2 by NAA Not Detected (NotDetected); SARS-CoV-2 orf1ab Negative
== END 2020-11-20 23:09 | disposition home or self-care (01) ==
LOC: NAV ERS 20:16
DX: R50.9 Fever, unspecified (principal); R63.0 Anorexia; Z20.822 Contact with and (suspected) exposure to COVID-19; I25.2 Old myocardial infarction; E11.40 Type 2 diabetes mellitus with diabetic neuropathy, unspecified; I10 Essential (primary) hypertension; Z87.891 Personal history of nicotine dependence; Z79.4 Long term (current) use of insulin; Z79.82 Long term (current) use of aspirin; Z79.899 Other long term (current) drug therapy
CPT/HCPCS: 36415; 71045; 80053; 81003; 81015; 82553; 83605; 84484; 85025; 87040; 87635; 87804; U0003

== ENCOUNTER 2020-12-01 15:46 | Emergency (ER) | payer MEDICARE ==
[2020-12-01 17:23] LABS: Bilirubin Negative (Negative); Blood, Urine Small (Negative); Clarity Clear (Clear); Glucose, Urine (Dipstick) >=1000 mg/dL (Negative); Ketone, Urine Negative (Negative); Leukocyte Negative (Negative); Nitrite Negative (Negative); Protein, Urine (Dipstick) > or equal to 300 mg/dL (Neg-Trace); Urobilinogen 0.2 mg/dL (Less than 2); pH, Urine 6.5 (5.0-9.0)
--- NOTE | 2020-12-01 17:24 | RAD ---
XR Chest Pa Lat STANDARD HISTORY: Fever COMPARISON: 11/20/2020 FINDINGS: Changes of median sternotomy and left-sided AICD is again seen. The heart size is normal. T he lungs are well expanded without focal areas of consolidation, pneumothorax or pleural effusions. IMPRESSION: No radiographic evidence of acute cardiopulmonary process.
[2020-12-01 17:31] LABS: ALT (SGPT) 52 U/L (8-55); AST (SGOT) 42 U/L (5-34); Alkaline Phosphatase 251 U/L (40-110); Anion Gap 15 mmol/L (10-20); BUN (Urea Nitrogen) 17 mg/dL (8.4-25.7); Bilirubin, Total 0.8 mg/dL (0.2-1.2); Calc. Creatinine Clearance 0 mL/min (70-130); Calcium 8.5 mg/dL (7.8-10.44); Carbon Dioxide 25 mmol/L (23-31); Chloride 91 mmol/L (98-107); Globulin 3.6 g/dL (2.4-3.5); Glucose 381 mg/dL (80-115); Potassium 4.4 mmol/L (3.5-5.1); Protein, Total 6.6 g/dL (5.8-8.1); Sodium 127 mmol/L (136-145)
[2020-12-01 17:32] LABS: RBC/HPF 0-3 HPF (0-3); Squamous Epithelial 0-3 HPF (0-3); WBC/HPF 0-3 HPF (0-3)
[2020-12-01 17:33] LABS: #Basophils 0.2 thou/uL (0.0-0.2); #Lymphocytes 0.5 thou/uL (1.20-3.40); #Monocytes 0.6 thou/uL (0.11-0.59); #Neutrophils 5.4 thou/uL (1.40-6.50); %Basophils 2.9 % (0.0-1.0); %Eosinophils 0.1 % (0.0-10.0); %Lymphocytes 7.9 % (21.0-51.0); %Monocytes 8.5 % (0.0-10.0); %Neutrophils 80.6 % (42.0-75.0); Hemoglobin 14.9 g/dL (14.0-18.0); Mean Corpuscular HGB CONC 31.7 g/dL (32.0-36.0); Mean Corpuscular Hemoglobin 29.1 pg (27.0-31.0); Mean Platelet Volume 8.5 fL (7.4-10.4); Platelet Count 272 thou/uL (130-400); RBC Distribution Width 12.8 % (11.5-14.5); Red Blood Cell (RBC) Count 5.11 mill/uL (4.70-6.10); White Blood Cell (WBC) Count 6.8 thou/uL (4.8-10.8)
[2020-12-01] MEDS ORDERED: Sodium Chloride 0.9% 1,000 ML ONE ×2 (17:46→18:59)
[2020-12-01] MEDS ORDERED: Sodium Chloride 0.9% 500 ML ONE (20:20)
[2020-12-01 20:36] LABS: Lactic Acid 1.8 mmol/L (0.5-2.2)
[2020-12-01 20:51] LABS: SARS-CoV-2 NAA Rapid Test Not Detected (NotDetected)
== END 2020-12-01 21:03 | disposition critical access hospital (66) ==
LOC: NAV ERS 15:46
DX: E86.0 Dehydration (principal); E87.1 Hypo-osmolality and hyponatremia; N28.9 Disorder of kidney and ureter, unspecified; E11.40 Type 2 diabetes mellitus with diabetic neuropathy, unspecified; Z20.822 Contact with and (suspected) exposure to COVID-19; I25.2 Old myocardial infarction; E78.5 Hyperlipidemia, unspecified; I10 Essential (primary) hypertension; Z87.891 Personal history of nicotine dependence; Z79.4 Long term (current) use of insulin; Z79.82 Long term (current) use of aspirin; Z79.899 Other long term (current) drug therapy
CPT/HCPCS: 0240U; 71046; 80053; 81003; 81015; 83605; 85025; 87040; J7030; J7050

== ENCOUNTER 2020-12-01 21:16 | Observation (INO) | payer MEDICARE ==
[2020-12-01] MEDS ORDERED: Acetaminophen 325 MG TAB PO PRN (21:52)
[2020-12-01] MEDS ORDERED: Sodium Chloride 0.9% 1,000 ML IV SCH (22:00)
[2020-12-01 22:02] VITALS: BMI 30.2
[2020-12-01] MEDS ORDERED: SEMAGLUTIDE 5 MG SC SCH (22:15)
[2020-12-01] MEDS ORDERED: Dextrose 50% Abboject 50 ML SYRINGE SLOW IVP PRN (22:15)
[2020-12-01] MEDS ORDERED: Carvedilol 3.125 MG TAB PO SCH (22:15)
[2020-12-01] MEDS ORDERED: Dextrose 5% in Water 1,000 ML IV PRN (22:15)
[2020-12-01] MEDS ORDERED: HumaLOG 300 UNITS/3 ML VIAL SC PRN ×2 (22:15)
[2020-12-01 23:38] LABS: Anion Gap 14 mmol/L (10-20); BUN (Urea Nitrogen) 14 mg/dL (8.4-25.7); Calc. Creatinine Clearance 99 mL/min (70-130); Calcium 7.9 mg/dL (7.8-10.44); Carbon Dioxide 22 mmol/L (23-31); Chloride 99 mmol/L (98-107); Glucose 270 mg/dL (80-115); Sodium 131 mmol/L (136-145)
[2020-12-02 06:29] LABS: Anion Gap 13 mmol/L (10-20); BUN (Urea Nitrogen) 13 mg/dL (8.4-25.7); Calc. Creatinine Clearance 105 mL/min (70-130); Calcium 7.8 mg/dL (7.8-10.44); Carbon Dioxide 22 mmol/L (23-31); Chloride 100 mmol/L (98-107); Glucose 225 mg/dL (80-115); Potassium 3.8 mmol/L (3.5-5.1); Sodium 131 mmol/L (136-145)
[2020-12-02] MEDS ORDERED: Glimepiride 2 MG TAB PO SCH (07:30)
[2020-12-02 08:26] VITALS: BP 183/89; TEMP 98.4
[2020-12-02] MEDS ORDERED: Furosemide 40 MG TAB PO SCH (09:00)
[2020-12-02] MEDS ORDERED: Rivaroxaban 10 MG TAB PO SCH (09:00)
[2020-12-02] MEDS ORDERED: Nebivolol HCl 2.5 MG TAB PO SCH (09:00)
[2020-12-02] MEDS ORDERED: Pregabalin 50 MG CAP PO SCH (09:00)
[2020-12-02] MEDS ORDERED: Aspirin 81 mg Enteric Coated Tablet PO SCH (09:00)
[2020-12-02] MEDS ORDERED: FLU VACC QS2020-21(6MOS UP)/PF 60 MCG/0.5 ML SYRINGE IM ONE (09:00)
[2020-12-02] MEDS ORDERED: PARoxetine 20 MG TAB PO SCH (09:00)
[2020-12-02] MEDS ORDERED: Carvedilol 3.125 MG TAB PO SCH (09:00)
--- NOTE | 2020-12-03 07:07 | SS ---
DATE OF ADMISSION: 12/01/2020 DATE OF DISCHARGE: 12/02/2020 HISTORY OF PRESENT ILLNESS: The patient presented to [facility] ED with a complaint of fever on and off for 2 weeks. The patient had previous workup in the ER, which was unremarkable, COVID negative, and blood cultures negative. The patient continued to have this on and off fever over the past couple of weeks and presented yesterday for this. The patient in the ER, was afebrile, vital signs stable, COVID negative, chest x-ray unremarkable. However, the patient was found to have a sodium at 127, asymptomatic from this, and was admitted for observation. Today, the patient was started on normal saline at a rate of 100. Sodium was repeated 4 hours later and was found to be 131. The rate was cut in half at that time to prevent over-correction. The patient, this morning, is pleasant, lying in bed. Discussed his lab work with him and stated that at 131 and asymptomatic, he would be okay to go home, but we would need to switch up his Lasix to p.r.n. as this may be the cause of his low sodium. He is going to follow up with me in clinic later this week, hopefully, tomorrow or Thursday, and will repeat his lab work to make sure that it has corrected back with changing his Lasix to p.r.n. ED precautions were given as well for any signs, symptoms of hyponatremia. PAST MEDICAL HISTORY: Recurrent ventricular tachycardia, status post ablations and ICD placement; CAD, status post stent, CABG; heart failure, reduced ejection fraction; diabetes type 2; hypertension; CKD; and tobacco abuse. PAST SURGICAL HISTORY: CABG as stated above; extensive orthopedic back, knee, and wrist surgeries; and bilateral great toe amputations. FAMILY HISTORY: Noncontributory. SOCIAL HISTORY: Current smoker for many, many years. Denies any alcohol or illicit drug use. REVIEW OF SYSTEMS: Denies any fever, chills, cough, congestion, palpitations, chest pain, nausea, vomiting, diarrhea, generalized weakness, fatigue, dyspnea, or lethargy. PHYSICAL EXAMINATION: VITAL SIGNS: Today, temperature 98.9, pulse 77 to 85, respirations 18 to 20, O2 sats 95 to 98 on room air, and blood pressure 146/70 to 183/89. Of note, the patient was unsure of his current medication regimen and this may be contributing to his high blood pressure. We will follow up with this in clinic this week. ASSESSMENT: 1. Hyponatremia, possibly secondary to daily Lasix use. The patient is asymptomatic from this. 2. Hypertension. 3. Diabetes type 2. 4. Heart failure, reduced ejection fraction. 5. Coronary artery disease. 6. Peripheral vascular disease. PLAN: 1. At this point, we will discharge the patient home in stable condition. He will follow up with me early this week to follow up with lab work and to make sure his sodium has come back up. As stated previously, we will switch his Lasix to p.r.n. as opposed to daily to help increase his sodium. If his sodium remains low, we will look into other causes of his low sodium and consider a renal consult if it continues. Salt tablets for this patient are contraindicated as vast history of cardiac pathology with CAD, PVD, and heart failure. 2. Continue Coreg at home. 3. Continue diabetic medications at home as well. 4. Follow up with me in clinic this week. DISCHARGE MEDICATIONS: 1. Aspirin 81 mg daily. 2. Coreg 3.125 mg b.i.d. 3. Lasix 40 mg daily now p.r.n. for shortness of breath or swelling. 4. Glimepiride 4 mg daily. 5. Bystolic 5 mg daily. 6. Paroxetine 40 mg daily. 7. Lyrica 100 mg p.o. t.i.d. 8. Xarelto 2.5 p.o. daily. 9. Ozempic 5 mg injection q.7 days. DISCHARGE ACTIVITY: Activity as tolerated. DISCHARGE DIET: Heart-healthy diet. FOLLOWUP: Clinic visit with me only. Job ID: [id number]
== END 2020-12-02 11:00 | disposition home or self-care (01) ==
LOC: NAV ACUTE 21:16
PROVIDERS: ADMIT Family Medicine; ATTEND Family Medicine
DX: E87.1 Hypo-osmolality and hyponatremia (principal); I13.0 Hypertensive heart and chronic kidney disease with heart failure and stage 1 through stage 4 chronic kidney disease, or unspecified chronic kidney disease; E11.22 Type 2 diabetes mellitus with diabetic chronic kidney disease; N18.9 Chronic kidney disease, unspecified; I50.20 Unspecified systolic (congestive) heart failure; I25.10 Atherosclerotic heart disease of native coronary artery without angina pectoris; E11.51 Type 2 diabetes mellitus with diabetic peripheral angiopathy without gangrene; F17.200 Nicotine dependence, unspecified, uncomplicated; Z79.01 Long term (current) use of anticoagulants; Z79.82 Long term (current) use of aspirin; Z79.84 Long term (current) use of oral hypoglycemic drugs; Z79.899 Other long term (current) drug therapy; Z88.1 Allergy status to other antibiotic agents; Z88.2 Allergy status to sulfonamides; Z88.5 Allergy status to narcotic agent; Z88.8 Allergy status to other drugs, medicaments and biological substances; Z91.018 Allergy to other foods; Z95.1 Presence of aortocoronary bypass graft; Z95.5 Presence of coronary angioplasty implant and graft; Z95.810 Presence of automatic (implantable) cardiac defibrillator; Z89.412 Acquired absence of left great toe; Z89.411 Acquired absence of right great toe; E86.0 Dehydration; N28.9 Disorder of kidney and ureter, unspecified; E11.40 Type 2 diabetes mellitus with diabetic neuropathy, unspecified; Z20.822 Contact with and (suspected) exposure to COVID-19; I25.2 Old myocardial infarction; E78.5 Hyperlipidemia, unspecified; I10 Essential (primary) hypertension; Z79.4 Long term (current) use of insulin
CPT/HCPCS: 0240U; 36415; 36416; 71046; 80048; 80053; 81003; 81015; 83605; 83880; 85025; 87040; G0378; J7030; J7050

== ENCOUNTER 2021-06-05 17:24 | Outpatient (CLI) | payer MEDICARE | END 2021-06-05 17:25 | disposition home or self-care (01) | LOC: NAV RAD 17:24 | PROVIDERS: ATTEND Family Medicine | DX: M25.522 Pain in left elbow (principal); R23.4 Changes in skin texture; M19.022 Primary osteoarthritis, left elbow ==

== ENCOUNTER 2022-04-17 11:37 | Emergency (ER) | payer MEDICARE ==
[2022-04-17 12:15] LABS: #Basophils 0.1 thou/uL (0.0-0.2); #Eosinphils 0.3 thou/uL (0.0-0.7); #Lymphocytes 1.6 thou/uL (1.20-3.40); #Monocytes 0.5 thou/uL (0.11-0.59); #Neutrophils 5.8 thou/uL (1.40-6.50); %Eosinophils 3.8 % (0.0-10.0); %Lymphocytes 19.2 % (21.0-51.0); %Monocytes 5.8 % (0.0-10.0); %Neutrophils 70.3 % (42.0-75.0); Hemoglobin 13.6 g/dL (14.0-18.0); Mean Corpuscular HGB CONC 30.4 g/dL (32.0-36.0); Mean Corpuscular Hemoglobin 29.1 pg (27.0-31.0); Mean Corpuscular Volume 95.7 fL (78.0-98.0); Mean Platelet Volume 10.2 fL (7.4-10.4); Platelet Count 267 thou/uL (130-400); RBC Distribution Width 13.1 % (11.5-14.5); Red Blood Cell (RBC) Count 4.67 mill/uL (4.70-6.10); White Blood Cell (WBC) Count 8.3 thou/uL (4.8-10.8)
[2022-04-17 12:31] LABS: Prothrombin Time 13.2 sec (12.0-14.7)
[2022-04-17 12:33] LABS: Bilirubin Negative (Negative); Blood, Urine Trace (Negative); Clarity Clear (Clear); Glucose, Urine (Dipstick) 500 mg/dL (Negative); Ketone, Urine Negative (Negative); Leukocyte Negative (Negative); Nitrite Negative (Negative); Protein, Urine (Dipstick) 100 mg/dL (Neg-Trace); Urobilinogen 0.2 mg/dL (Less than 2)
[2022-04-17 12:40] LABS: RBC/HPF 0-3 HPF (0-3)
[2022-04-17 12:40] LABS: ALT (SGPT) 13 U/L (8-55); AST (SGOT) 12 U/L (5-34); Albumin 3.6 g/dL (3.4-4.8); Alkaline Phosphatase 175 U/L (40-110); Anion Gap 17 mmol/L (10-20); BUN (Urea Nitrogen) 67 mg/dL (8.4-25.7); Bilirubin, Total 0.3 mg/dL (0.2-1.2); CK (CPK) 287 U/L (30-200); Calc. Creatinine Clearance 0 mL/min (70-130); Carbon Dioxide 22 mmol/L (23-31); Chloride 102 mmol/L (98-107); Globulin 3.2 g/dL (2.4-3.5); Glucose 362 mg/dL (80-115); Potassium 4.9 mmol/L (3.5-5.1); Protein, Total 6.8 g/dL (5.8-8.1); Sodium 136 mmol/L (136-145)
[2022-04-17] MEDS ORDERED: Aspirin Chewable 81 MG TAB ONE (13:45)
[2022-04-17 14:41] LABS: SARS-CoV-2 NAA Rapid Test Not Detected (NotDetected)
[2022-04-17 17:30] LABS: Troponin I 0.032 ng/mL (< 0.028)
== END 2022-04-17 19:00 | disposition short-term general hospital (02) ==
LOC: NAV ERS 11:37
DX: R20.2 Paresthesia of skin (principal); N17.9 Acute kidney failure, unspecified; I12.9 Hypertensive chronic kidney disease with stage 1 through stage 4 chronic kidney disease, or unspecified chronic kidney disease; E11.22 Type 2 diabetes mellitus with diabetic chronic kidney disease; N18.9 Chronic kidney disease, unspecified; I25.2 Old myocardial infarction; E78.5 Hyperlipidemia, unspecified; E78.00 Pure hypercholesterolemia, unspecified; I25.10 Atherosclerotic heart disease of native coronary artery without angina pectoris; Z79.4 Long term (current) use of insulin; Z87.891 Personal history of nicotine dependence; Z20.822 Contact with and (suspected) exposure to COVID-19; Z79.899 Other long term (current) drug therapy; Z79.82 Long term (current) use of aspirin
CPT/HCPCS: 70450; 71045; 80053; 82550; 82962; 84484 ×2; 85025; 85610; 93005; 99285; U0002; 36416; 81003; 81015

== ENCOUNTER 2022-06-09 14:41 | Emergency (ER) | payer MEDICARE ==
[2022-06-09] MEDS ORDERED: Lidocaine 1% 20 ML MDV ONE (15:01)
== END 2022-06-09 17:36 | disposition short-term general hospital (02) ==
LOC: NAV ERS 14:41
DX: S93.124A Dislocation of metatarsophalangeal joint of right lesser toe(s), initial encounter (principal); S91.114A Laceration without foreign body of right lesser toe(s) without damage to nail, initial encounter; E11.40 Type 2 diabetes mellitus with diabetic neuropathy, unspecified; E78.5 Hyperlipidemia, unspecified; I10 Essential (primary) hypertension; F17.210 Nicotine dependence, cigarettes, uncomplicated; I25.2 Old myocardial infarction; Z79.4 Long term (current) use of insulin; Z79.899 Other long term (current) drug therapy; X58.XXXA Exposure to other specified factors, initial encounter
CPT/HCPCS: 12001

== ENCOUNTER 2023-12-06 19:34 | Emergency (ER) | payer MEDICARE ==
[2023-12-06] MEDS ORDERED: Amoxicillin/Potassium Clav 875 MG TAB ONE (20:03)
[2023-12-06] MEDS ORDERED: Silver Sulfadiazine 50 GM TUBE ONE (20:04)
== END 2023-12-06 20:24 | disposition home or self-care (01) ==
LOC: NAV ERS 19:34
DX: T25.222A Burn of second degree of left foot, initial encounter (principal); T31.0 Burns involving less than 10% of body surface; E11.621 Type 2 diabetes mellitus with foot ulcer; E11.40 Type 2 diabetes mellitus with diabetic neuropathy, unspecified; F17.210 Nicotine dependence, cigarettes, uncomplicated; E78.5 Hyperlipidemia, unspecified; I10 Essential (primary) hypertension; E78.00 Pure hypercholesterolemia, unspecified; Z79.899 Other long term (current) drug therapy; Z79.4 Long term (current) use of insulin; X58.XXXA Exposure to other specified factors, initial encounter
CPT/HCPCS: 16020; 99283